=== PATIENT | male | born 1970 | race Caucasian/White ===

== ENCOUNTER 2024-06-23 17:18 | Emergency (ER) | payer MEDICAID, OTHER ==
[~2024-06-23] VITALS: Ht 170.2 cm; Wt 76.6 kg
[2024-06-23 17:37] VITALS: BP 122/83; PULSE 110; RESP 16; TEMP 98.3; O2SAT 94
[2024-06-23] MEDS ORDERED: FUROSEMIDE 100 MG/10ML VIAL IV ONE (17:45)
[2024-06-23] MEDS ORDERED: LACTULOSE 20Gm/30ML SOLN PO ONE (17:45)
[2024-06-23] MEDS ORDERED: SPIRONOLACTONE 25 MG TAB PO ONE (17:45)
--- NOTE | 2024-06-23 17:45 | ED.PDOC ---
GI ASSESSMENT HPI Comments 54 y.o male presents to the ED for a chief complaint of abdominal distention. Patient reports one week ago having a paracentesis at [facility] and states distention recurred a couple days ago again. Patient also presents for medication refill for Xifaxan 550mg, Furosemide 20mg, Spirolactone 50mg and Lactulose 20mg. Vitals: BP: 122/83 HR: 110 Temp: 98.3 F SPO2: 94% RA RR: 16 Past medical history: Liver Cirrhosis and ascites Past surgical history: Paracentesis Allergies: None HPI: Poor Historian. REVIEW OF SYSTEMS: CONSTITUTIONAL: Denies acute: fever, diaphoresis, chills, generalized weakness. HEAD: Denies acute: headache, photophobia Eyes: Denies acute: Double vision, vision loss, eye pain, eye discharge. EARS: Denies acute: tinnitus, hearing loss, ear discharge, ear pain, THROAT: Denies acute: sore throat, swelling, difficulty swallowing , pain with swallowing, change in voice. NECK: Denies acute: neck pain, neck swelling, stiff neck. HEART: Denies acute : chest pain, palpitations, LUNGS: Denies acute: SOB, wheezing, cough, hemoptysis ABDOMEN: Denies acute: abdominal pain, Nausea, Vomiting, diarrhea, melena , hematemesis, hematochezia SKIN: Denies acute: rash, redness, lesions, itchiness. EXTREMITIES: Denies acute: calf pain, numbness, tingling, weakness, denies pain in extremity. Denies acute: Low back pain. Neuro: Denies acute: focal neurological deficit, motor or sensory focal neurological deficit, tremors, seizure like activity, confusion, dizziness, change in mental status, loss of bowel or bladder function, cauda equina like symptoms. : Denies acute: dysuria, hematuria, flank pain, increase in urinary frequency. PSYCH: Denies acute: hallucination, suicidal ideation, homicidal ideation. PHYSICAL EXAM: General: ----no----acute distress, awake and alert. Head: normocephalic, atraumatic. Neck: supple, trachea is midline, no swelling. Throat: Normal phonation. Eyes:, no erythema, no purulent discharge, no proptosis, no icterus. Heart: regular tachycardic, no significant murmur appreciated. Lungs: no apparent respiratory distress, Able to speak in full sentences. No wheezing, no rhonchi, no crackles. No stridors Clear to auscultation bilaterally. Abdomen: non tender to palpation, noted distention, soft, no guarding, no rebound, + bowel sounds. Neuro: Awake, Alert, oriented to name, self, situation, follows commands GCS=15. Speech is normal. Skin: no petechia, no purpura, no cyanosis, non-pale, not jaundice. Lower extremities: --no - Pitting edema no deformity, no focal swelling, no calf TTP. Makes eye contact. moves all four extremities. Face: no apparent facial droop. Ambulating in the ED independently. ED COURSE: Chief Complaint: Abdominal Pain Time Seen by MD: 17:35 Primary Care Provider: denies Reviewed Notes: Nurses Notes, Allergies Allergies: Coded Allergies: NO KNOWN ALLERGIES (Unverified , 06/23/24) Information Source: Patient Mode of Arrival: Ambulatory Past Medical History PAST MEDICAL HISTORY: Liver Surgical History (Other): paracentesis Family History Family History: Reviewed,noncontributory to illness Social History Smoker: Non-Smoker Alcohol: Denies ETOH Use Drugs: Denies Drug Use Lives In: Home Was a procedure done? Was a procedure done?: No GI differential Dx Differential Diagnosis: Esophagitis, Hepatitis, Inflammatory BD, Pancreatitis, Other (DDX include but not limited to diverticulitis, colitis, gastroenteritis, acute abdomen, SBO, enteritis, constipation, volvulus, appendicitis, Gallbladder disease, choledocolithiasis, ascending cholangitis, pancreatitis, intraAbdominal mass/neoplasm, hepatitis, UTI, pylonephritis, kidney stone, aneurysm, dissection, Inflammatory bowel disease, gastroparesis, ischemic bowel.) X-Ray, Labs, Meds, VS Vital Signs Date Time Temp Pulse Resp B/P (MAP) Pulse Ox O2 Delivery O2 Flow Rate FiO2 06/23/24 17:37 98.3 110 16 122/83 (96) 94 98.3 Lab Test 06/23/24 18:01 06/23/24 17:56 Range/Units Lactic Acid Level 3.5 *H 0.4-2.0 mmol/L White Blood Count 19.3 H 4.4-10.8 10^3/uL Red Blood Count 3.48 L 4.5-5.90 10^6/uL Hemoglobin 12.0 L 13.5-17.5 g/dL Hematocrit 35.3 L 41.0-53.0 % Mean Corpuscular Volume 101.3 H 80.0-100.0 fL Mean Corpuscular Hemoglobin 34.4 H 28.0-32.0 pg Mean Corpuscular Hemoglobin Concent 34.0 32.0-36.0 g/dL Red Cell Distribution Width 14.4 H 11.8-14.3 % Platelet Count 309 140-450 10^3/uL Mean Platelet Volume 7.5 6.9-10.8 fL Neutrophils (%) (Auto) 73.2 37.0-80.0 % Lymphocytes (%) (Auto) 13.1 10.0-50.0 % Monocytes (%) (Auto) 11.0 0.0-12.0 % Eosinophils (%) (Auto) 2.1 0.0-7.0 % Basophils (%) (Auto) 0.6 0.0-2.0 % Neutrophils # (Auto) 14.1 H 1.6-8.6 10 ^3/uL Lymphocytes # (Auto) 2.5 0.4-5.4 10 ^3/uL Monocytes # (Auto) 2.1 H 0-1.3 10 ^3/uL Eosinophils # (Auto) 0.4 0-0.8 10 ^3/uL Basophils # (Auto) 0.1 0-0.2 10 ^3/uL Nucleated Red Blood Cells 0.1 % Prothrombin Time 14.5 H 9.3-11.8 sec Prothrombin Time INR 1.42 H 0.9-1.15 Activated Partial Thromboplast Time 35.0 H 24.5-34.5 SEC Sodium Level 129 L 136-145 mmol/L Potassium Level 4.3 3.5-5.1 mmol/L Chloride Level 99 98-107 mmol/L Carbon Dioxide Level 23 20-31 mmol/L Anion Gap 7 5-15 Blood Urea Nitrogen 21 9-23 mg/dL Creatinine 1.05 0.700-1.30 mg/dL Glomerular Filtration Rate Calc 84 >90 mL/min BUN/Creatinine Ratio 20.0 10.0-20.0 Serum Glucose 119 H 74-106 mg/dL Calcium Level 8.6 L 8.7-10.4 mg/dL Total Bilirubin 3.9 H 0.2-1.0 mg/dL Aspartate Amino Transferase (AST) 75 H 13-40 U/L Alanine Aminotransferase (ALT) 38 7-40 U/L Alkaline Phosphatase 239 H 46-116 U/L Troponin I High Sensitivity 10 </=54 ng/L B-Type Natriuretic Peptide 33.14 0-100 pg/mL Total Protein 8.0 5.7-8.2 g/dL Albumin 2.6 L 3.2-4.8 g/dL Lipase 48 12-53 U/L Microbiology Date/Time Source Procedure Growth Status 06/23/24 20:08 Blood Blood Culture - Preliminary NO GROWTH AFTER 24 HOURS OF INCUBATION. Resulted 06/23/24 19:50 Blood Blood Culture - Preliminary NO GROWTH AFTER 24 HOURS OF INCUBATION. Resulted [place] [address] Ph: [phone] DIAGNOSTIC IMAGING Diagnostic Imaging Report : [id number] Signed PATIENT: YUE QUARLES ACCT: [id number] UNIT: [id number] : 1970 LOC: ER ROOM / BED: / AGE / SEX: 54 / M ADM STATUS: REG ER SERVICE 173 ORDERING PHYSICIAN: RAMÓN BERMAN DO PROCEDURE(s): CXRP - CHEST PORTABLE REASON: abd dist. ascites ORDER NUMBER(s): [id number], ACCESSION NUMBER(s): [id number] CHEST RADIOGRAPH Indication: abd dist. ascites Technique: Single frontal view of the chest was obtained Comparison: Lung windows from prior CT examination of the abdomen pelvis of today's date FINDINGS: In prior CT examination patient had voluminous ascites and probable cirrhosis of the elevation of the right hemidiaphragm there appears to be fluid in the right major fissure in the which is visible in the right lung base in the current study. Small effusion in the posterior right lower lobe. IMPRESSION: 1. Probable minimal fluid reflux from large amount of ascites into the right lung base. ATED BY: GUZMAN SALAZAR MD DICTATED DATE/TIME: 06/23/241800 SIGNED BY: GUZMAN SALAZAR MD SIGNED DATE/TIME: 06/23/241800 CC: [place] [address] Ph: [phone] DIAGNOSTIC IMAGING Diagnostic Imaging Report : [id number] Signed PATIENT: YUE QUARLES ACCT: [id number] UNIT: [id number] : 1970 LOC: ER ROOM / BED: / AGE / SEX: 54 / M ADM STATUS: REG ER SERVICE 30 ORDERING PHYSICIAN: RAMÓN BERMAN DO PROCEDURE(s): ABPL - CT AB PEL WO CON-NO ORAL OR IV REASON: abd dist, ascites ORDER NUMBER(s): [id number], ACCESSION NUMBER(s): [id number] Procedure: CT CT AB PEL WO CON-NO ORAL OR IV 06/23/2024 05:38 PM Indication: abd dist, ascites Comparison Study: None Technique: Axial images were obtained and reformatted in coronal and sagittal planes. All CT scans at this medical facility are performed using dose modulation techniques as appropriate to a performed exam including the following: Automated exposure control was utilized; adjustment of the MA and/or KV according to patient size; and use of iterative reconstruction technique. CT Dose: CTDI volume is 13.37 mGy. Dose-length product is 765.89 mGy*cm FINDINGS: Lower Chest: Small right pleural effusion. Hepatobiliary: Cirrhotic liver morphology. Mild diffuse gallbladder wall thickening likely secondary to cirrhosis and ascites. No intrahepatic or extrahepatic ductal dilatation. Large abdominopelvic ascites. Spleen: Unremarkable. Pancreas: Unremarkable. Adrenal Glands: Unremarkable. tract: The kidneys are normal in size bilaterally without hydronephrosis or nephrolithiasis. The urinary bladder is unremarkable. GI tract: The stomach is grossly normal in appearance. No evidence of small bowel obstruction. Scattered colonic diverticula are noted without evidence of diverticulitis. The appendix is normal. Lymphatics: No mesenteric, retroperitoneal or periportal lymphadenopathy. Vasculature: The abdominal aorta is normal in in caliber. Pelvic Organs: Prostate is mildly enlarged. Bones/soft tissues: No acute abnormality. Multilevel degenerative changes of the lumbar spine noted. Other: None. IMPRESSION: 1. Cirrhosis and large abdominopelvic ascites. 2. Small right pleural effusion. 3. Scattered colonic diverticula without diverticulitis. ATED BY: SHILOH SHANE MD DICTATED DATE/TIME: 06/23/241818 SIGNED BY: SHILOH SHANE MD SIGNED DATE/TIME: 06/23/241818 CC: Time of 1ST Reevaluation: 17:41 Reevaluation 1ST: Unchanged Time of 2ND Reevaluation: 20:38 (Sepsis protocol was initiated earlier. We are unable to locate the patient. Patient eloped. I spoke with the charge nurse Kristen, to reach out to the patient and have him return given his abnormal findings.) Patient Education/Counseling: Diagnosis, Treatment Family Education/Counseling: No Family Present Comments Patient presented with the above HPI.------workup was initiated. patient was found with the above mentioned diagnosis. the following medications were ordered: please refer to order lists of meds and tests obtained by myself Dr. Berman. Patient ED course and VS have been stabilized. Patient has been reassessed in the ED and remained in a stable condition. Escalation of care considered: Consideration of escalation to observation or admission Sepsis protocol was initiated. Patient was ADMITTED to the medicine team for further evaluation and treatment of their presentation. However patient eloped. All the reports of any imaging studies that were ordered by myself were reviewed by myself. Departure 1 Departure Time of Disposition: 19:41 Impression: Primary Impression: Sepsis Additional Impressions: Ascites Pleural effusion Leukocytosis Elevated lactic acid level Disposition: ADMITTED INPATIENT Admit to: Tele Condition: Guarded Additional Instructions: Patient eloped Discharged With: Self Critical Care Note Critical Care Time?: Yes (45 min-critical care time only) I personally scribed for RAMÓN BERMAN DO ([email or web address]) on 06/23/24 at 17:45. Electronically submitted by Nimisha Kerr ([facility]). I personally scribed for RAMÓN BERMAN DO ([email or web address]) on 06/23/24 at 20:03. Electronically submitted by Nimisha Kerr ([facility]). RAMÓN BERMAN DO Jun 23, 2024 17:45
--- NOTE | 2024-06-23 18:03 | DVH ---
CHEST RADIOGRAPH Indication: abd dist. ascites Technique: Single frontal view of the chest was obtained Comparison: Lung windows from prior CT examination of the abdomen pelvis of today's date FINDINGS: In prior CT examination patient had voluminous ascites and probable cirrhosis of the elevation of the right hemidiaphragm there appears to be fluid in the right major fissure in the which is visible in the right lung base in the current study. Small effusion in the posterior right lower lobe. IMPRESSION: 1. Probable minimal fluid reflux from large amount of ascites into the right lung base.
--- NOTE | 2024-06-23 18:22 | DVH ---
Procedure: CT CT AB PEL WO CON-NO ORAL OR IV 06/23/2024 05:38 PM Indication: abd dist, ascites Comparison Study: None Technique: Axial images were obtained and reformatted in coronal and sagittal planes. All CT scans at this medical facility are performed using dose modulation techniques as appropriate to a performed e xam including the following: Automated exposure control was utilized; adjustment of the MA and/or KV according to patient size; and use of iterative reconstruction technique. CT Dose: CTDI volume is 13. 37 mGy. Dose-length product is 765.89 mGy*cm FINDINGS: Lower Chest: Small right pleural effusion. Hepatobiliary: Cirrhotic liver morphology. Mild diffuse gallbladder wall thickening likely secondary to cirrhosis and ascites. No intrahepatic or extrahepatic ductal dilatation. Large abdominopelvic a scites. Spleen: Unremarkable. Pancreas: Unremarkable. Adrenal Glands: Unremarkable. tract: The kidneys are normal in size bilaterally without hydronephrosis or nephrolithiasis. The u rinary bladder is unremarkable. GI tract: The stomach is grossly normal in appearance. No evidence of small bowel obstruction. Scatte red colonic diverticula are noted without evidence of diverticulitis. The appendix is normal. Lymphatics: No mesenteric, retroperitoneal or periportal lymphadenopathy. Vasculature: The abdominal aorta is normal in in caliber. Pelvic Organs: Prostate is mildly enlarged. Bones/soft tissues: No acute abnormality. Multilevel degenerative changes of the lumbar spine noted. Other: None. IMPRESSION: 1. Cirrhosis and large abdominopelvic ascites. 2. Small right pleural effusion. 3. Scattered colonic diverticula without diverticulitis.
[2024-06-23 19:02] LABS: Basophils # (auto) 0.1 10 ^3/uL (0-0.2); Eosinophils # (auto) 0.4 10 ^3/uL (0-0.8); Platelet Count (auto) 309 10^3/uL (140-450)
[2024-06-23 19:05] LABS: Basophils % (auto) 0.6 % (0.0-2.0); Eosinophils % (auto) 2.1 % (0.0-7.0); Hematocrit 35.3 % (41.0-53.0); Lymphocytes # (auto) 2.5 10 ^3/uL (0.4-5.4); Lymphocytes % (auto) 13.1 % (10.0-50.0); Mean Corpuscular Hemoglobin 34.4 pg (28.0-32.0); Mean Corpuscular Volume 101.3 fL (80.0-100.0); Monocytes # (auto) 2.1 10 ^3/uL (0-1.3); Neutrophils # (auto) 14.1 10 ^3/uL (1.6-8.6); Neutrophils % (auto) 73.2 % (37.0-80.0); Nucleated Red Blood Cells % 0.1 %; Red Blood Cells 3.48 10^6/uL (4.5-5.90); Red Cell Distribution Width 14.4 % (11.8-14.3); White Blood Cell 19.3 10^3/uL (4.4-10.8)
[2024-06-23 19:08] LABS: Alanine Aminotransferase 38 U/L (7-40); Anion Gap 7 (5-15); Blood Urea Nitrogen 21 mg/dL (9-23); Carbon Dioxide 23 mmol/L (20-31); Chloride 99 mmol/L (98-107); Lipase 48 U/L (12-53); Potassium 4.3 mmol/L (3.5-5.1)
[2024-06-23 19:18] LABS: INR 1.42 (0.9-1.15); Prothrombin Time 14.5 sec (9.3-11.8)
[2024-06-23 19:23] LABS: Albumin 2.6 g/dL (3.2-4.8); Alkaline Phosphatase 239 U/L (46-116); Aspartate Aminotransferase 75 U/L (13-40); Bilirubin, Total 3.9 mg/dL (0.2-1.0); Calcium 8.6 mg/dL (8.7-10.4); Glucose 119 mg/dL (74-106); Sodium 129 mmol/L (136-145)
[2024-06-23 19:24] LABS: Lactic Acid w/Reflex 3.5 mmol/L (0.4-2.0)
[2024-06-23] MEDS ORDERED: cefTRIAXone 2GM/50ML D5W 50 ML IV ONE (19:45)
== END 2024-06-23 20:19 | disposition left against medical advice (07) ==
LOC: ER 17:18
DX: A41.9 Sepsis, unspecified organism (principal); E87.20 Acidosis, unspecified; J84.10 Pulmonary fibrosis, unspecified; J90 Pleural effusion, not elsewhere classified; R18.8 Other ascites; R06.02 Shortness of breath; Z76.0 Encounter for issue of repeat prescription
CPT/HCPCS: 36415; 71045; 74176; 80053; 83605; 83690; 83880; 84484; 85025; 85610; 85730; 87040; 99291

== ENCOUNTER 2024-06-24 07:37 | Emergency (ER) | payer MEDICAID ==
[~2024-06-24] VITALS: Ht 165.1 cm; Wt 78.6 kg
--- NOTE | 2024-06-24 08:11 | ED.PDOC ---
GI ASSESSMENT HPI Comments 54 year old male presents to the ED with a chief complaint of abdominal pain onset 2 days. Patient states he has been experiencing abdominal pain with distension for the past 2 days, was seen at [facility] 06/23/24, decided to leave prior to paracentesis. Patient returned to ED today for paracentesis. Last paracentesis was at [facility] 6 days ago, states he regularly has them done at [facility], does not have a PCP, states he is moving to [place] in a couple weeks. PMHx liver disease. Denies chest pain, nausea, vomiting, diarrhea, fever, chills, dizziness, headache. No other symptoms or modifying factors present at this time. Chief Complaint: Abdominal Pain Time Seen by MD: 08:00 Primary Care Provider: none Reviewed Notes: Medications, Allergies Allergies: Coded Allergies: NO KNOWN ALLERGIES (Unverified , 06/23/24) Information Source: Patient Mode of Arrival: Ambulatory Timing: Days Duration: Since onset Prehospital treatment: None Quality: Other Vomitus: None Severity: Moderate Recent: None Recent Hx of: Liver Disease Pain Location: Diffuse Modifying Factors: Nothing Associated sign and symptoms: Abdominal Pain Past Medical History PAST MEDICAL HISTORY: Liver Family History Family History: Reviewed,noncontributory to illness Social History Smoker: Non-Smoker Alcohol: Denies ETOH Use Drugs: Denies Drug Use Lives In: Home Constitutional: denies: chills, diaphoresis, fatigue, fever, malaise, sweats, weakness, others EENTM: denies: blurred vision, double vision, ear bleeding, ear discharge, ear drainage, ear pain, ear ringing, eye pain, eye redness, hearing loss, mouth pain, mouth swelling, nasal discharge, nose bleeding, nose congestion, nose pain, photophobia, tearing, throat pain, throat swelling, voice changes, others Respiratory: denies: cough, hemoptysis, orthopnea, SOB at rest, shortness of breath, SOB with excertion, stridor, wheezing, others Cardiovascular: denies: chest pain, dizzy spells, diaphoresis, Dyspnea on exertion, edema, irregular heart beat, left arm pain, lightheadedness, palpitations, PND, syncope, others Gastrointestinal: reports: abdomen distended, abdominal pain; denies: blood streaked bowels, constipated, diarrhea, dysphagia, difficulty swallowing, hematemesis, melena, nausea, poor appetite, poor fluid intake, rectal bleeding, rectal pain, vomiting, others Genitourinary: denies: burning, dysuria, flank pain, frequency, hematuria, incontinence, penile discharge, penile sore, pain, testicle pain, testicle swelling, urgency, others Neurological: denies: dizziness, fainting, headache, left sided numbness, left sided weakness, numbness, paresthesia, pre-existing deficit, right sided numbness, right sided weakness, seizure, speech problems, tingling, tremors, weakness, others Musculoskeletal: denies: back pain, gout, joint pain, joint swelling, muscle pain, muscle stiffness, neck pain, others Integumetry: denies: bruises, change in color, change in hair/nails, dryness, laceration, lesions, lumps, rash, wounds, others Allergic/Immunocompromised: denies: Difficulty Healing, Frequent Infections, Hives, Itching, others Hematologic/Lymphatic: denies: anemia, blood clots, easy bleeding, easy bruising, swollen glands, others Endocrine: denies: excessive hunger, excessive sweating, excessive thirst, excessive urination, flushing, intolerance to cold, intolerance to heat, unexplained weight gain, unexplained weight loss, others Psychiatric: denies: anxiety, bipolar disorder, depression, hopeless, panic disorder, schizophrenia, sleepless, suicidal, others All Other Systems: Reviewed and Negative Physical Exam General Appearance: Moderate Distress, Normal HEENT: Normal ENT Inspection, Pharynx Normal, TMs Normal Neck: Full Range of Motion, Non-Tender, Normal, Normal Inspection Respiratory: Chest Non-Tender, Lungs Clear, No Accessory Muscle Use, No Respiratory Distress, Normal Breath Sounds Cardiovascular: No Edema, No JVD, No Murmur, No Gallop, Normal Peripheral Pulses, Regular Rate/Rhythm Breast Exam: Deferred Gastrointestinal: Distended, No Organomegaly, Other (protuberant abdomen) Genitalia: Deferred Pelvic: Deferred Rectal: Deferred Extremities: No calf tenderness, Normal capillary refill, Normal inspection, Normal range of motion, Non-tender, No pedal edema Musculoskeletal : Apperance: Normal Neurologic: Alert, metal cutter II-XII 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 Was a procedure done?: No GI differential Dx Differential Diagnosis: Cholecystitis, Dysmenorrhea, Gastritis/PUD, Gastroenteritis, GI hemorrhage, Inflammatory BD, Pancreatitis, Dehydration, Diabetes/ DKA, Electrolyte Imbalance, Food Poisoning, Esophageal Varicies X-Ray, Labs, Meds, VS Vital Signs Date Time Temp Pulse Resp B/P (MAP) Pulse Ox O2 Delivery O2 Flow Rate FiO2 06/24/24 11:44 97.5 75 17 98/46 (63) 97 97.5 06/24/24 08:40 97.5 121 18 112/76 (88) 96 97.5 06/24/24 08:40 121 18 96 Room Air 06/24/24 07:52 98.1 116 17 107/71 (83) 97 98.1 Lab Test 06/24/24 10:25 06/24/24 08:13 06/24/24 07:46 Range/Units Lactic Acid Level 2.7 *H 3.7 *H 0.4-2.0 mmol/L White Blood Count 19.3 H 4.4-10.8 10^3/uL Red Blood Count 3.35 L 4.5-5.90 10^6/uL Hemoglobin 11.5 L 13.5-17.5 g/dL Hematocrit 34.2 L 41.0-53.0 % Mean Corpuscular Volume 101.9 H 80.0-100.0 fL Mean Corpuscular Hemoglobin 34.4 H 28.0-32.0 pg Mean Corpuscular Hemoglobin Concent 33.7 32.0-36.0 g/dL Red Cell Distribution Width 14.6 H 11.8-14.3 % Platelet Count 308 140-450 10^3/uL Mean Platelet Volume 7.2 6.9-10.8 fL Neutrophils (%) (Auto) 73.0 37.0-80.0 % Lymphocytes (%) (Auto) 13.9 10.0-50.0 % Monocytes (%) (Auto) 10.6 0.0-12.0 % Eosinophils (%) (Auto) 1.8 0.0-7.0 % Basophils (%) (Auto) 0.7 0.0-2.0 % Neutrophils # (Auto) 14.1 H 1.6-8.6 10 ^3/uL Lymphocytes # (Auto) 2.7 0.4-5.4 10 ^3/uL Monocytes # (Auto) 2.0 H 0-1.3 10 ^3/uL Eosinophils # (Auto) 0.3 0-0.8 10 ^3/uL Basophils # (Auto) 0.1 0-0.2 10 ^3/uL Nucleated Red Blood Cells 0.3 % Sodium Level 127 L 136-145 mmol/L Potassium Level 4.4 3.5-5.1 mmol/L Chloride Level 97 L 98-107 mmol/L Carbon Dioxide Level 22 20-31 mmol/L Anion Gap 8 5-15 Blood Urea Nitrogen 22 9-23 mg/dL Creatinine 1.44 H 0.700-1.30 mg/dL Glomerular Filtration Rate Calc 57 >90 mL/min BUN/Creatinine Ratio 15.3 10.0-20.0 Serum Glucose 115 H 74-106 mg/dL Calcium Level 8.7 8.7-10.4 mg/dL Total Bilirubin 5.4 H 0.2-1.0 mg/dL Aspartate Amino Transferase (AST) 69 H 13-40 U/L Alanine Aminotransferase (ALT) 40 7-40 U/L Alkaline Phosphatase 219 H 46-116 U/L Total Protein 7.7 5.7-8.2 g/dL Albumin 2.4 L 3.2-4.8 g/dL Lipase 37 12-53 U/L Urine Color Dark-orange Yellow Urine Clarity Turbid H Clear Urine pH 5.5 5.0-9.0 Urine Specific Page 1.023 1.001-1.035 Urine Protein 1+ H Negative Urine Ketones Negative Negative Urine Blood Negative Negative /uL Urine Nitrite Negative Negative Urine Bilirubin 1+ Negative Urine Urobilinogen 3 H Negative mg/dL Urine Leukocyte Esterase 1+ Negative /uL Urine RBC 1 0 - 3 /hpf Urine Microscopic WBC 1 0-3 /HPF Urine Squamous Epithelial Cells Few <5 /hpf Urine Calcium Oxalate Crystals Few None Seen Urine Bacteria None seen None Seen /hpf Urine Hyaline Casts Many 0 - 2 /lpf Urine Granular Casts Many 0 /lpf Urine Mucus Few None Seen Urine Yeast (Budding) Occasional None Seen /hpf Urine Glucose Normal Normal mg/dL Current Medications Medications (Trade) Dose Ordered Sig/Mykel Route Start Time Stop Time Status Last Admin Vancomycin HCl 200 ml @ 200 mls/hr ONCE ONCE IV 06/24/24 11:15 4/1/25 12:14 DC 06/24/24 11:43 Time of 1ST Reevaluation: 08:30 Reevaluation 1ST: Unchanged Patient Education/Counseling: Diagnosis, Treatment, Prognosis Family Education/Counseling: No Family Present Additional Information The following tests were ordered, and results were reviewed by me: CBC, CMP, LIPASE, LA W/ REFLEX, US PARACENTESIS I reviewed and agreed with the following test results read by other providers:US PARACENTESIS I discussed treatment and results with medical personnel and: Patient Comprehensive systems review obtained and negative except for what is stated in the HPI. Departure 1 Departure Time of Disposition: 12:40 (Patient presented with abdominal pain that was concerning for possible appendicits, gastritis, cholecystitis, colitis, gastroenteritis, sbo, or orther possible surgical emergency. Data: 1. I ordered and reviewed the result of at least 3 labs including a CBC, BMP, and Urinalysis. 2. I independently interpreted the following tests: CT Abdoment and Pelvis from yesterday is concerning for ascites.Risk:This patient has a high risk of morbidity due to further diagnostic testing or treatment and may suffer from an acute abdominal process disorder. Workup reveals concern for SBP and worsening volume overload and patient should be admitted for further workup. and possible expert consultation. Patient may have concern for sepsis but appears volume overloaded and will not give patient antibiotics. ) Impression: Primary Impression: Ascites Qualified Codes: R18.8 - Other ascites Additional Impressions: Abdominal pain Qualified Codes: R10.84 - Generalized abdominal pain Volume overload Qualified Codes: E87.70 - Fluid overload, unspecified Disposition: ADMITTED INPATIENT Admit to: Med Surg Condition: Serious Critical Care Note Critical Care Time?: No Stability Stability form required: No I personally scribed for FREDO STAPLETON MD ([email or web address]) on 06/24/24 at 08:11. Electronically submitted by Marya Sousa ([email or web address]). I personally scribed for FREDO STAPELTON MD ([email or web address]) on 06/24/24 at 08:18. Electronically submitted by Marya Sousa ([email or web address]). FREDO STAPLETON MD Jun 24, 2024 08:11
[2024-06-24 08:33] LABS: Basophils # (auto) 0.1 10 ^3/uL (0-0.2); Basophils % (auto) 0.7 % (0.0-2.0); Eosinophils # (auto) 0.3 10 ^3/uL (0-0.8); Eosinophils % (auto) 1.8 % (0.0-7.0); Hematocrit 34.2 % (41.0-53.0); Hemoglobin 11.5 g/dL (13.5-17.5); Lymphocytes # (auto) 2.7 10 ^3/uL (0.4-5.4); Lymphocytes % (auto) 13.9 % (10.0-50.0); Mean Corpuscular Hemoglobin 34.4 pg (28.0-32.0); Mean Corpuscular Hgb Conc. 33.7 g/dL (32.0-36.0); Mean Corpuscular Volume 101.9 fL (80.0-100.0); Monocytes % (auto) 10.6 % (0.0-12.0); Neutrophils # (auto) 14.1 10 ^3/uL (1.6-8.6); Nucleated Red Blood Cells % 0.3 %; Platelet Count (auto) 308 10^3/uL (140-450); Red Blood Cells 3.35 10^6/uL (4.5-5.90); Red Cell Distribution Width 14.6 % (11.8-14.3); White Blood Cell 19.3 10^3/uL (4.4-10.8)
[2024-06-24 08:50] LABS: Alanine Aminotransferase 40 U/L (7-40); BUN/Creatinine Ratio 15.3 (10.0-20.0); Blood Urea Nitrogen 22 mg/dL (9-23); Calcium 8.7 mg/dL (8.7-10.4); Carbon Dioxide 22 mmol/L (20-31); Potassium 4.4 mmol/L (3.5-5.1); Total Protein 7.7 g/dL (5.7-8.2)
[2024-06-24 09:00] LABS: Albumin 2.4 g/dL (3.2-4.8); Alkaline Phosphatase 219 U/L (46-116); Aspartate Aminotransferase 69 U/L (13-40); Bilirubin, Total 5.4 mg/dL (0.2-1.0); Glucose 115 mg/dL (74-106); Sodium 127 mmol/L (136-145)
[2024-06-24 09:06] LABS: Urine Bacteria None Seen /hpf (None Seen)
[2024-06-24 09:15] LABS: Anion Gap 8 (5-15)
[2024-06-24 09:20] LABS: Lactic Acid w/Reflex 3.7 mmol/L (0.4-2.0)
[2024-06-24 09:21] LABS: Lipase 37 U/L (12-53)
[2024-06-24 09:22] LABS: Chloride 97 mmol/L (98-107)
[2024-06-24 09:23] LABS: Urine Blood Negative /uL (Negative); Urine Budding Yeast OCCASIONAL /hpf (None Seen); Urine Clarity Turbid (Clear); Urine Color Dark-Orange (Yellow); Urine Hyaline Cast MANY /lpf (0 - 2); Urine Mucus FEW (None Seen); Urine Protein, UAD 1+ (Negative); Urine Specific Gravity 1.023 (1.001-1.035); Urine Squamous Epithelial Cell FEW /hpf (<5); Urine Urobilinogen 3 mg/dL (Negative); Urine WBC 1 /HPF (0-3); Urine pH 5.5 (5.0-9.0)
[2024-06-24] MEDS: VANCOMYCIN 1GM/200ML PM 200 ML IV ONE (11:43)
[2024-06-24 11:44] VITALS: TEMP 97.5
[2024-06-24] MEDS: CEFEPIME 2GM/50ML NS 50 ML IV ONE (14:10)
[2024-06-24 15:10] VITALS: BP 116/68; PULSE 108; RESP 18; O2SAT 96
[2024-06-25] MEDS ORDERED: SODC1T PO (14:21)
[2024-06-25] MEDS ORDERED: SPIR50TA5 PO (14:21)
[2024-06-25] MEDS ORDERED: RIFA550T PO (14:21)
[2024-06-25] MEDS ORDERED: LACT10SO3 PO (14:21)
[2024-06-25] MEDS ORDERED: APIX5TAB PO (14:21)
[2024-06-25] MEDS ORDERED: [UNRECOGNIZED DRUG - CODE] OR (14:21)
[2024-06-25] MEDS ORDERED: ASCO500C49 PO (14:21)
[2024-06-25] MEDS ORDERED: THIA100T10 GT (14:21)
[2024-06-25] MEDS ORDERED: FURO20TA4 GT (14:21)
== END 2024-06-24 15:09 | disposition left against medical advice (07) ==
LOC: ER 07:37
DX: R18.8 Other ascites (principal); E87.70 Fluid overload, unspecified
CPT/HCPCS: 36415; 80053; 81001; 83605; 83690; 85025; 87040; 96365; 96367; 99284; J0692; J3370

== ENCOUNTER 2024-06-25 07:41 | Inpatient (IN) | payer MEDICAID ==
[~2024-06-25] VITALS: Ht 170.2 cm; Wt 78.8 kg
--- NOTE | 2024-06-25 08:06 | ED.PDOC ---
GI ASSESSMENT HPI Comments 54Y M presents to ED for chief complaint abdominal pain x3 days. Patient states he has been experiencing abdominal pain with distension for the past 3 days, was seen at [facility] 06/23/24 and 06/24/24, decided to leave prior to paracentesis. Patient returned to ED today for paracentesis. Last paracentesis was at [facility] last week, states he regularly has them done at [facility], does not have a PCP, states he is moving to [place] in a couple weeks. PMHx liver disease. Denies chest pain, nausea, vomiting, diarrhea, fever, chills, dizziness, headache. No other symptoms or modifying factors present at this time. Chief Complaint: Abdominal Pain Time Seen by MD: 07:55 Primary Care Provider: none Reviewed Notes: Nurses Notes, Medications, Allergies Allergies: Coded Allergies: NO KNOWN ALLERGIES (Unverified , 06/23/24) Information Source: Patient Mode of Arrival: Ambulatory Timing: Days Duration: Since onset Prehospital treatment: None Quality: Other Vomitus: None Stool: Normal Severity: Moderate Recent: None Recent Hx of: None Modifying Factors: Nothing Associated sign and symptoms: Other Past Medical History PAST MEDICAL HISTORY: Liver Surgical History: Denies all surgeries Family History Family History: Reviewed,noncontributory to illness Social History Smoker: Non-Smoker Alcohol: Denies ETOH Use Drugs: Denies Drug Use Lives In: Home Constitutional: denies: chills, diaphoresis, fatigue, fever, malaise, sweats, weakness, others EENTM: denies: blurred vision, double vision, ear bleeding, ear discharge, ear drainage, ear pain, ear ringing, eye pain, eye redness, hearing loss, mouth pain, mouth swelling, nasal discharge, nose bleeding, nose congestion, nose pain, photophobia, tearing, throat pain, throat swelling, voice changes, others Respiratory: denies: cough, hemoptysis, orthopnea, SOB at rest, shortness of breath, SOB with excertion, stridor, wheezing, others Cardiovascular: denies: chest pain, dizzy spells, diaphoresis, Dyspnea on exertion, edema, irregular heart beat, left arm pain, lightheadedness, palpitations, PND, syncope, others Gastrointestinal: reports: abdomen distended, abdominal pain; denies: blood streaked bowels, constipated, diarrhea, dysphagia, difficulty swallowing, hematemesis, melena, nausea, poor appetite, poor fluid intake, rectal bleeding, rectal pain, vomiting, others Genitourinary: denies: burning, dysuria, flank pain, frequency, hematuria, incontinence, penile discharge, penile sore, pain, testicle pain, testicle swelling, urgency, others Neurological: denies: dizziness, fainting, headache, left sided numbness, left sided weakness, numbness, paresthesia, pre-existing deficit, right sided numbness, right sided weakness, seizure, speech problems, tingling, tremors, weakness, others Musculoskeletal: denies: back pain, gout, joint pain, joint swelling, muscle pain, muscle stiffness, neck pain, others Integumetry: denies: bruises, change in color, change in hair/nails, dryness, laceration, lesions, lumps, rash, wounds, others Allergic/Immunocompromised: denies: Difficulty Healing, Frequent Infections, Hives, Itching, others Hematologic/Lymphatic: denies: anemia, blood clots, easy bleeding, easy bruising, swollen glands, others Endocrine: denies: excessive hunger, excessive sweating, excessive thirst, excessive urination, flushing, intolerance to cold, intolerance to heat, unexplained weight gain, unexplained weight loss, others Psychiatric: denies: anxiety, bipolar disorder, depression, hopeless, panic disorder, schizophrenia, sleepless, suicidal, others All Other Systems: Reviewed and Negative Physical Exam General Appearance: Moderate Distress, Normal HEENT: Normal ENT Inspection, Pharynx Normal, TMs Normal Neck: Full Range of Motion, Non-Tender, Normal, Normal Inspection Respiratory: Chest Non-Tender, Lungs Clear, No Accessory Muscle Use, No Respiratory Distress, Normal Breath Sounds Cardiovascular: No Edema, No JVD, No Murmur, No Gallop, Normal Peripheral Pulses, Regular Rate/Rhythm Breast Exam: Deferred Gastrointestinal: Distended, Non Tender Genitalia: Deferred Pelvic: Deferred Rectal: Deferred Extremities: No calf tenderness, Normal capillary refill, Normal inspection, Normal range of motion, Non-tender, No pedal edema Musculoskeletal : Apperance: Normal Neurologic: Alert, cold meat cook II-XII nml as Tested, No Motor Deficits, Normal Affect, Normal Mood, No Sensory Deficits Cerebellar Function: NOT DONE Reflexes: NOT DONE Skin: Dry, Normal Color, Warm Lymphatic: No Adenopathy Was a procedure done? Was a procedure done?: No GI differential Dx Differential Diagnosis: Cholecystitis, Gastritis/PUD, Gastroenteritis, GI hemorrhage, Inflammatory BD, Pancreatitis, Dehydration, Diabetes/ DKA, Electrolyte Imbalance, Food Poisoning, Esophageal Varicies X-Ray, Labs, Meds, VS Vital Signs Date Time Temp Pulse Resp B/P (MAP) Pulse Ox O2 Delivery O2 Flow Rate FiO2 06/25/24 10:30 104 12 95/50 (65) 97 06/25/24 10:00 103 19 102/64 (77) 97 06/25/24 09:00 107 18 94/62 (73) 96 06/25/24 08:15 111 20 99 Room Air* 0 21 06/25/24 08:15 97.7 111 20 104/72 (83) 99 97.7 06/25/24 07:59 113 06/25/24 07:50 97.9 121 18 120/61 (80) 98 97.9 Lab Test 06/25/24 09:23 06/25/24 08:30 Range/Units White Blood Count 16.0 H 4.4-10.8 10^3/uL Red Blood Count 3.15 L 4.5-5.90 10^6/uL Hemoglobin 11.0 L 13.5-17.5 g/dL Hematocrit 31.9 L 41.0-53.0 % Mean Corpuscular Volume 101.4 H 80.0-100.0 fL Mean Corpuscular Hemoglobin 34.9 H 28.0-32.0 pg Mean Corpuscular Hemoglobin Concent 34.4 32.0-36.0 g/dL Red Cell Distribution Width 14.7 H 11.8-14.3 % Platelet Count 218 140-450 10^3/uL Mean Platelet Volume 6.8 L 6.9-10.8 fL Neutrophils (%) (Auto) 82.5 H 37.0-80.0 % Lymphocytes (%) (Auto) 3.8 L 10.0-50.0 % Monocytes (%) (Auto) 11.7 0.0-12.0 % Eosinophils (%) (Auto) 1.2 0.0-7.0 % Basophils (%) (Auto) 0.8 0.0-2.0 % Neutrophils # (Auto) 13.2 H 1.6-8.6 10 ^3/uL Lymphocytes # (Auto) 0.6 0.4-5.4 10 ^3/uL Monocytes # (Auto) 1.9 H 0-1.3 10 ^3/uL Eosinophils # (Auto) 0.2 0-0.8 10 ^3/uL Basophils # (Auto) 0.1 0-0.2 10 ^3/uL Nucleated Red Blood Cells 0.0 % Prothrombin Time 13.8 H 9.3-11.8 sec Prothrombin Time INR 1.34 H 0.9-1.15 Activated Partial Thromboplast Time 33.3 24.5-34.5 SEC Sodium Level 125 L 136-145 mmol/L Potassium Level 4.9 3.5-5.1 mmol/L Chloride Level 96 L 98-107 mmol/L Carbon Dioxide Level 20 20-31 mmol/L Anion Gap 9 5-15 Blood Urea Nitrogen 25 H 9-23 mg/dL Creatinine 1.89 H 0.700-1.30 mg/dL Glomerular Filtration Rate Calc 41 >90 mL/min BUN/Creatinine Ratio 13.2 10.0-20.0 Serum Glucose 123 H 74-106 mg/dL Calcium Level 8.7 8.7-10.4 mg/dL Total Bilirubin 5.0 H 0.2-1.0 mg/dL Aspartate Amino Transferase (AST) 68 H 13-40 U/L Alanine Aminotransferase (ALT) 34 7-40 U/L Alkaline Phosphatase 220 H 46-116 U/L Total Protein 7.5 5.7-8.2 g/dL Albumin 2.4 L 3.2-4.8 g/dL Time of 1ST Reevaluation: 08:25 Reevaluation 1ST: Unchanged Patient Education/Counseling: Diagnosis, Treatment Family Education/Counseling: No Family Present Departure 1 Departure Time of Disposition: 11:22 (Patient ready presenting with worsening abdominal pain. Patient is signed out AMA yesterday because he had a something to deal with. Patient with metabolic disarray. Patient had 9 L drained from his abdomen. We will admit patient for further workup and expert consultation) Impression: Primary Impression: Abdominal pain Qualified Codes: R10.84 - Generalized abdominal pain Additional Impressions: Ascites Qualified Codes: R18.8 - Other ascites Hyponatremia Disposition: ADMITTED INPATIENT Admit to: Med Surg Condition: Serious Critical Care Note Critical Care Time?: No Stability Stability form required: No Heart Score Heart Score: Heart Score Response (Comments) Value History N/A 0 EKG N/A 0 Age N/A 0 Risk Factors N/A 0 Troponin N/A 0 Total 0 I personally scribed for FREDO STAPLETON MD ([facility]) on 06/25/24 at 08:06. Electronically submitted by June Pavon ([facility]). I personally scribed for FREDO STAPLETON MD ([facility]) on 06/25/24 at 08:13. Electronically submitted by June Pavon ([facility]). FREDO STAPLETON MD Jun 25, 2024 08:06
[2024-06-25 08:15] VITALS: PULSE 111; RESP 20; O2SAT 99
[2024-06-25 09:07] LABS: INR 1.34 (0.9-1.15); Partial Thromboplastin Time 33.3 SEC (24.5-34.5); Prothrombin Time 13.8 sec (9.3-11.8)
[2024-06-25 09:08] LABS: Alanine Aminotransferase 34 U/L (7-40); Anion Gap 9 (5-15); BUN/Creatinine Ratio 13.2 (10.0-20.0); Calcium 8.7 mg/dL (8.7-10.4); Potassium 4.9 mmol/L (3.5-5.1); Total Protein 7.5 g/dL (5.7-8.2)
[2024-06-25 09:09] LABS: Albumin 2.4 g/dL (3.2-4.8); Alkaline Phosphatase 220 U/L (46-116); Aspartate Aminotransferase 68 U/L (13-40); Blood Urea Nitrogen 25 mg/dL (9-23); Carbon Dioxide 20 mmol/L (20-31); Chloride 96 mmol/L (98-107); Glucose 123 mg/dL (74-106); Sodium 125 mmol/L (136-145)
[2024-06-25 09:35] LABS: Basophils # (auto) 0.1 10 ^3/uL (0-0.2); Basophils % (auto) 0.8 % (0.0-2.0); Eosinophils # (auto) 0.2 10 ^3/uL (0-0.8); Eosinophils % (auto) 1.2 % (0.0-7.0); Hematocrit 31.9 % (41.0-53.0); Lymphocytes # (auto) 0.6 10 ^3/uL (0.4-5.4); Lymphocytes % (auto) 3.8 % (10.0-50.0); Mean Corpuscular Hemoglobin 34.9 pg (28.0-32.0); Mean Corpuscular Hgb Conc. 34.4 g/dL (32.0-36.0); Mean Corpuscular Volume 101.4 fL (80.0-100.0); Monocytes # (auto) 1.9 10 ^3/uL (0-1.3); Monocytes % (auto) 11.7 % (0.0-12.0); Neutrophils # (auto) 13.2 10 ^3/uL (1.6-8.6); Neutrophils % (auto) 82.5 % (37.0-80.0); Platelet Count (auto) 218 10^3/uL (140-450); Red Blood Cells 3.15 10^6/uL (4.5-5.90); Red Cell Distribution Width 14.7 % (11.8-14.3)
--- NOTE | 2024-06-25 11:19 | DVH ---
US PARACENTESIS, HISTORY: ASCITES PROCEDURE: Informed consent was obtained. The patient was placed in supine position. A limited locali zation ultrasound of the abdomen was obtained, and the skin site over the largest pocket of fluid was marked and entry site was prepped with chlorhexidine which was allowed to dry and draped in the usua l sterile fashion. Time out was performed. Following administration of 1% lidocaine local anesthetic, a 5 Nauruan centesis needle catheter was percutaneously inserted into the peritoneal collection until fluid was aspirated. The catheter was advanced into the fluid collection and the needle removed. Abo ut 9000 cc of fluid was aspirated and specimen sent for appropriate cultures/cytology/cultures and cy tology. The catheter was then removed and a sterile dressing applied. No immediate complication was identified. FINDINGS: Limited ultrasound imaging demonstrates moderate ascites. Aspirated fluid was clear and ser ous. IMPRESSION: US-guided paracentesis with 9L removed.
[2024-06-25] MEDS: CEFEPIME 2GM/50ML NS 50 ML IV ONE (12:01)
[2024-06-25 13:04] LABS: Lactic Acid w/Reflex 4.4 mmol/L (0.4-2.0)
[2024-06-25 13:37] LABS: Urine Bacteria None Seen /hpf (None Seen)
[2024-06-25] MEDS: VANCOMYCIN 1GM/250ML KIT 250 ML IV ONE (13:41)
[2024-06-25 13:49] LABS: Urine Blood Negative /uL (Negative); Urine Clarity Turbid (Clear); Urine Color Orange (Yellow); Urine Hyaline Cast FEW /lpf (0 - 2); Urine Mucus FEW (None Seen); Urine Protein, UAD 1+ (Negative); Urine Specific Gravity 1.029 (1.001-1.035); Urine Squamous Epithelial Cell FEW /hpf (<5); Urine Urobilinogen 3 mg/dL (Negative); Urine WBC 10 /HPF (0-3); Urine pH 5.5 (5.0-9.0)
[2024-06-25] MEDS ORDERED: ACETAMINOPHEN 325 MG TAB PO PRN (14:00)
[2024-06-25] MEDS ORDERED: DOCUSATE SOD 100 MG CAP PO PRN (14:00)
[2024-06-25] MEDS ORDERED: MORPHINE SULFATE INJ 2 MG/ml SYRG IV PRN (14:00)
[2024-06-25] MEDS ORDERED: ONDANSETRON HCL 4 MG/2 ML VIAL IV PRN (14:00)
[2024-06-25] MEDS ORDERED: HYDROcodone-ACET 5/325MG TAB PO PRN (14:00)
[2024-06-25] MEDS ORDERED: NITROGLYCERIN 0.4 MG SL TAB SL PRN (14:00)
[2024-06-25 14:19] LABS: Body Fluid Red Blood Cells 0 CUMM (0-2000); Body Fluid White Blood Cells 114 CUMM (0-200)
[2024-06-25] MEDS ORDERED: ASCO500C49 PO (14:21)
[2024-06-25] MEDS ORDERED: THIA100T10 GT (14:21)
[2024-06-25] MEDS ORDERED: FURO20TA4 GT (14:21)
[2024-06-25] MEDS ORDERED: RIFA550T PO (14:21)
[2024-06-25] MEDS ORDERED: APIX5TAB PO (14:21)
[2024-06-25] MEDS ORDERED: SODC1T PO (14:21)
[2024-06-25] MEDS ORDERED: [UNRECOGNIZED DRUG - CODE] OR (14:21)
[2024-06-25] MEDS ORDERED: SPIR50TA5 PO (14:21)
[2024-06-25] MEDS ORDERED: LACT10SO3 PO (14:21)
--- NOTE | 2024-06-25 14:32 | DVHHP2 ---
History of Present Illness Reason for Visit: Abdominal pain History of Present Illness Ovidio Meng is a 54-year-old male with past medical history of DVT, and alcohol induced liver cirrhosis, who came in for abdominal pain. Patient has a history of requiring weekly paracentesis. His last paracentesis was . Patient was seen here the last 2 days but had to leave AMA to take care of his animals. He came back today able to stay and be admitted. Heme/Onc: Other (DVT) Hepatobiliary: Cirrhosis Past Surgical History: None Smoke: No ALCOHOL: none (quit March 2024) Drugs: None Lives: with Family Domestic Violence: Neg Review of Systems Constitutional: No: Fever, Chills, Sweats, Weakness, Malaise, Other Eyes: No: Pain, Vision change, Conjunctivae inflammation, Eyelid inflammation, Other, Redness ENT: No: Ear pain, Ear discharge, Nose pain, Nose discharge, Nose congestion, Mouth pain, Mouth swelling, Throat pain, Throat swelling, Other Respiratory: Shortness of breath, SOB with excertion; No: Cough, Dry, Wheezing, Hemoptysis, Pleuritic Pain, Sputum, Wheezing, Other Cardiovascular: No: Chest Pain, Palpitations, Orthopnea, Paroxysmal Noc. Dyspnea, Edema, Lt Headedness, Other Gastrointestinal: Abdominal Pain; No: Nausea, Vomiting, Diarrhea, Constipation, Melena, Hematochezia, Other Genitourinary: No Dysuria, No Frequency, No Incontinence, No Hematuria, No Retention, No Other Musculoskeletal: No: other, neck pain, shoulder pain, arm pain, back pain, hand pain, leg pain, foot pain Skin: No: Rash, Lesions, Jaundice, Bruising, Other Neurological: No: Weakness, Numbness, Incoordination, Change in speech, Confusion, Seizures, Other Allergies: Coded Allergies: NO KNOWN ALLERGIES (Unverified , 06/23/24) Medications Current Medications Medications Dose Ordered Sig/Mykel Route Start Time Stop Time Status Last Admin Dose Admin Acetaminophen/ Hydrocodone Bitart 1 tab Q4HP PRN PO 06/25/24 14:00 Ondansetron HCl 4 mg Q4HP PRN IV 06/25/24 14:00 Docusate Sodium 100 mg BIDPRN PRN PO 06/25/24 14:00 Acetaminophen 650 mg Q6HP PRN PO 06/25/24 14:00 Nitroglycerin 0.4 mg Q5MINP PRN SL 06/25/24 14:00 Morphine Sulfate 2 mg Q30M PRN IV 06/25/24 14:00 Exam Vital Signs Vital Signs Date Time Temp Pulse Resp B/P (MAP) Pulse Ox O2 Delivery O2 Flow Rate FiO2 06/25/24 12:00 97.7 106 13 100/41 (60) 97 97.7 06/25/24 08:15 Room Air* 0 21 General Appearance: Alert, Oriented X3, Cooperative, mild distress HEENT: Atraumatic, PERRLA Respiratory: Clear to auscultation, Normal air movement Cardiovascular: Normal S1, Normal S2, Other (tachycardia ) Abdominal: Normal bowel sounds, Other (S/P paracentesis - 9L off) Extremities: No clubbing, No cyanosis, Normal pulses, No tenderness/swelling, Other (Bilateral lower extremity edema) Skin: No rashes, No breakdown, No significant lesion Neuro: Normal gait, Normal speech, Strength at 5/5 X4 ext Psych/Mental Status: Mental status NL, Mood NL Labs/Xrays Labs Test 06/25/24 13:56 06/25/24 13:35 06/25/24 12:00 06/25/24 09:23 Range/Units Urine Color [place] H Yellow Urine Clarity Turbid H Clear Urine pH 5.5 5.0-9.0 Urine Specific [place] 1.029 1.001-1.035 Urine Protein 1+ H Negative Urine Ketones 1+ H Negative Urine Blood Negative Negative /uL Urine Nitrite Negative Negative Urine Bilirubin 1+ Negative Urine Urobilinogen 3 H Negative mg/dL Urine Leukocyte Esterase Negative Negative /uL Urine RBC 4 0 - 3 /hpf Urine Microscopic WBC 10 H 0-3 /HPF Urine Squamous Epithelial Cells Few <5 /hpf Urine Bacteria None seen None Seen /hpf Urine Hyaline Casts Few 0 - 2 /lpf Urine Mucus Few None Seen Urine Glucose Normal Normal mg/dL Body Fluid Source Peritoneal fluid Body Fluid pH 8.0 Body Fluid WBC (Manual) 114 0-200 CUMM Body Fluid RBC (Manual) 0 0-2000 CUMM Body Fluid Mononuclear Cells 60 % Body Fluid Polymorphonuclear Cells 40 H 0-25 % White Blood Count 16.0 H 4.4-10.8 10^3/uL Red Blood Count 3.15 L 4.5-5.90 10^6/uL Hemoglobin 11.0 L 13.5-17.5 g/dL Hematocrit 31.9 L 41.0-53.0 % Mean Corpuscular Volume 101.4 H 80.0-100.0 fL Mean Corpuscular Hemoglobin 34.9 H 28.0-32.0 pg Mean Corpuscular Hemoglobin Concent 34.4 32.0-36.0 g/dL Red Cell Distribution Width 14.7 H 11.8-14.3 % Platelet Count 218 140-450 10^3/uL Mean Platelet Volume 6.8 L 6.9-10.8 fL Neutrophils (%) (Auto) 82.5 H 37.0-80.0 % Lymphocytes (%) (Auto) 3.8 L 10.0-50.0 % Monocytes (%) (Auto) 11.7 0.0-12.0 % Eosinophils (%) (Auto) 1.2 0.0-7.0 % Basophils (%) (Auto) 0.8 0.0-2.0 % Neutrophils # (Auto) 13.2 H 1.6-8.6 10 ^3/uL Lymphocytes # (Auto) 0.6 0.4-5.4 10 ^3/uL Monocytes # (Auto) 1.9 H 0-1.3 10 ^3/uL Eosinophils # (Auto) 0.2 0-0.8 10 ^3/uL Basophils # (Auto) 0.1 0-0.2 10 ^3/uL Nucleated Red Blood Cells 0.0 % Test 06/25/24 08:30 Range/Units Prothrombin Time 13.8 H 9.3-11.8 sec Prothrombin Time INR 1.34 H 0.9-1.15 Activated Partial Thromboplast Time 33.3 24.5-34.5 SEC Sodium Level 125 L 136-145 mmol/L Potassium Level 4.9 3.5-5.1 mmol/L Chloride Level 96 L 98-107 mmol/L Carbon Dioxide Level 20 20-31 mmol/L Anion Gap 9 5-15 Blood Urea Nitrogen 25 H 9-23 mg/dL Creatinine 1.89 H 0.700-1.30 mg/dL Glomerular Filtration Rate Calc 41 >90 mL/min BUN/Creatinine Ratio 13.2 10.0-20.0 Serum Glucose 123 H 74-106 mg/dL Calcium Level 8.7 8.7-10.4 mg/dL Total Bilirubin 5.0 H 0.2-1.0 mg/dL Aspartate Amino Transferase (AST) 68 H 13-40 U/L Alanine Aminotransferase (ALT) 34 7-40 U/L Alkaline Phosphatase 220 H 46-116 U/L Total Protein 7.5 5.7-8.2 g/dL Albumin 2.4 L 3.2-4.8 g/dL US PARACENTESIS, HISTORY: ASCITES PROCEDURE: Informed consent was obtained. The patient was placed in supine position. A limited localization ultrasound of the abdomen was obtained, and the skin site over the largest pocket of fluid was marked and entry site was prepped with chlorhexidine which was allowed to dry and draped in the usual sterile fashion. Time out was performed. Following administration of 1% lidocaine local anesthetic, a 5 Belarusian centesis needle catheter was percutaneously inserted into the peritoneal collection until fluid was aspirated. The catheter was advanced into the fluid collection and the needle removed. About 9000 cc of fluid was aspirated and specimen sent for appropriate cultures/cytology/cultures and cytology. The catheter was then removed and a sterile dressing applied. No immediate complication was identified. FINDINGS: Limited ultrasound imaging demonstrates moderate ascites. Aspirated fluid was clear and serous. IMPRESSION: US-guided paracentesis with 9L removed. Assessment/Plan Assessment/Plan Assessment: Sepsis, Ascites, Leukocytosis, Lactic acidosis, Hyperbilirubinemia, Malnutrition, Hyponatremia, H/O DVT, Hypotension, Plan: Admit to [facility], Sepsis protocol, Blood culture, Urine culture, Paracentesis with 9L off, IV hydration, IV antibiotics, Ammonia levels, UA, urine cultures, Albumin, Plan discussed with: Patient My Orders Orders - MONICA CALVERT Procedure Category Date Status Time Admit ADMIT 06/25/24 Transmitted 14:00 Code Status CODE 06/25/24 Transmitted 14:00 Hydrocodone-Acet PHA 06/25/24 In Process 5/325mg Tab ([place] 14:00 Ondansetron Hcl PHA 06/25/24 In Process (Zofran) 14:00 Docusate Sodium PHA 06/25/24 In Process Capsule (Colace 14:00 Complete Blood Count LAB 06/26/24 Verified 04:00 Comprehensive LAB 06/26/24 Verified Metabolic Panel 04:00 Condition: Serious SRIKANTH 06/25/24 In Process 14:00 Acetaminophen Tablet PHA 06/25/24 In Process (Tylenol Tablet) 14:00 Nitroglycerin PHA 06/25/24 In Process Sublingual (Ntrostat 14:00 Morphine Sulfate PHA 06/25/24 In Process Injection 14:00 Stat Ekg For Chest SRIKANTH 06/25/24 In Process Pain 14:00 Notify Of Changes SRIKANTH 06/25/24 In Process From Base 14:00 Human Resources Office Manager For SRIKANTH 06/25/24 In Process 24 Hours 14:00 Emergency Dysrhythmia SRIKANTH 06/25/24 In Process Protocol 14:00 Rhythm Strips Once SRIKANTH 06/25/24 In Process Every Shift 14:00 Oxygen By Nasal RT 06/25/24 Transmitted Cannula 14:00 Urinalysis LAB 06/25/24 Logged 14:00 Ammonia LAB 06/25/24 Transmitted 14:04 Free Water Restriction SRIKANTH 06/25/24 Transmitted 14:04 Apixaban (Eliquis) PHA 06/25/24 Verified 22:00 Rifaximin (Xifaxan) PHA 06/25/24 Verified 22:00 Sodium Chloride Tab PHA 06/25/24 Verified 22:00 Thiamine Tab PHA 06/26/24 Verified 10:00 (Nf) Amino Acids PHA 06/26/24 Verified (Liquacel) 10:00 (Nf) Ascorbic Acid PHA 06/26/24 Verified (Vitamin C) 10:00 (Nf) Lactulose PHA 06/25/24 Verified 22:00 (Nf) Spironolactone PHA 06/26/24 Verified 10:00 Date of Service: Jun 25, 2024 Billing Provider: MONICA CALVERT Common Visit Codes: [id number] INP/OBS CARE (HIGH) MONICA CALVERT Jun 25, 2024 14:32
[2024-06-25] MEDS: SODIUM CHLORIDE 0.9% 2,000 ML IV ONE (14:56)
[2024-06-25] MEDS: ALBUMIN 5% 250 ML IV ONE (15:47)
[2024-06-25] MEDS ORDERED: VANCOMYCIN PER PHARMACY 0 MG IV SCH (16:45)
[2024-06-25 17:25] VITALS: BP 101/54; PULSE 106; RESP 18; RESP 19; TEMP 97.5; O2SAT 100
[2024-06-25] MEDS: cefTRIAXone 1GM/50ML D5W 50 ML IV SCH (18:07)
[2024-06-25 20:00] VITALS: PULSE 100; PULSE 108; RESP 17; O2SAT 97
[2024-06-25 21:00] VITALS: BP 95/48; PULSE 100; RESP 17; TEMP 97.9; O2SAT 97
[2024-06-25] MEDS: rifAXIMin 550 MG TAB PO SCH (21:59)
[2024-06-25] MEDS: LACTULOSE 20Gm/30ML SOLN PO SCH (22:00)
[2024-06-25] MEDS: APIXABAN 5 MG TAB PO SCH (22:00)
[2024-06-25] MEDS: SODIUM CHLORIDE 1 GM TAB PO SCH (22:00)
[2024-06-26] VITALS (8 sets, daily range): BP systolic 81–104; BP diastolic 39–81; PULSE 98–110; RESP 16–18; TEMP 97.5–98.1; O2SAT 92–98
[2024-06-26 06:49] LABS: Alanine Aminotransferase 26 U/L (7-40); Anion Gap 8 (5-15); BUN/Creatinine Ratio 19.1 (10.0-20.0); Chloride 100 mmol/L (98-107); Potassium 4.3 mmol/L (3.5-5.1)
[2024-06-26 06:50] LABS: Alkaline Phosphatase 183 U/L (46-116); Aspartate Aminotransferase 56 U/L (13-40); Blood Urea Nitrogen 26 mg/dL (9-23); Carbon Dioxide 19 mmol/L (20-31); Glucose 116 mg/dL (74-106); Sodium 127 mmol/L (136-145)
[2024-06-26 06:55] LABS: Basophils # (auto) 0.1 10 ^3/uL (0-0.2); Basophils % (auto) 0.8 % (0.0-2.0); Eosinophils # (auto) 0.4 10 ^3/uL (0-0.8); Eosinophils % (auto) 2.9 % (0.0-7.0); Hematocrit 29.4 % (41.0-53.0); Hemoglobin 9.9 g/dL (13.5-17.5); Lymphocytes # (auto) 0.9 10 ^3/uL (0.4-5.4); Lymphocytes % (auto) 6.7 % (10.0-50.0); Mean Corpuscular Hemoglobin 33.9 pg (28.0-32.0); Mean Corpuscular Hgb Conc. 33.6 g/dL (32.0-36.0); Monocytes # (auto) 1.6 10 ^3/uL (0-1.3); Monocytes % (auto) 12.5 % (0.0-12.0); Neutrophils % (auto) 77.1 % (37.0-80.0); Platelet Count (auto) 193 10^3/uL (140-450); Red Blood Cells 2.91 10^6/uL (4.5-5.90); Red Cell Distribution Width 14.4 % (11.8-14.3)
[2024-06-26] MEDS: ASCORBIC ACID 500 MG TAB PO SCH (08:50)
[2024-06-26] MEDS: SPIRONOLACTONE 25 MG TAB PO SCH (08:51)
[2024-06-26] MEDS: THIAMINE HCL 100 MG TAB GT SCH (08:51)
[2024-06-26] MEDS: AMINO ACIDS PO SCH (10:00)
[2024-06-26 10:38] LABS: Hepatitis B Core Total AB Negative (Negative)
[2024-06-26 10:58] LABS: Lactic Acid w/Reflex 2.4 mmol/L (0.4-2.0)
[2024-06-26] MEDS: ALBUMIN 25% 100 ML IV ONE (12:15)
[2024-06-26] MEDS: LACTULOSE 20Gm/30ML SOLN PO SCH (12:34)
[2024-06-26] MEDS: FUROSEMIDE 20 MG TAB PO ONE (12:38)
[2024-06-26] MEDS: VANCOMYCIN 500mg/100mL 100 ML IV ONE (12:39)
--- NOTE | 2024-06-26 12:43 | DVHPNRES ---
Progress Note Date Seen: Jun 26, 2024 Resident Creating Document: STELLA HEATON RESIDENT Medical Necessity Reason Pt with a Central, PICC or Fol: No Subjective Review of Systems This is year old male with past medical history of DVT, alcoholic liver cirrhosis came to the ED with a chief complaint of abdominal distention for last 3 days prior to this admission. the patient was diagnosed with cirrhosis 1 and half years ago and requiring weekly paracentesis and his last paracentesis was 06/19/24. Patient underwent paracentesis by IR yesterday and 9L removed and postoperative vitals were stable. Patient was seen and examined on the bedside. He is alert oriented x3. complaining of mild abdominal pain and no other active complaint. Constitutional: No: Fever, Chills, Sweats, Weakness, Malaise, Other Eyes: No: Pain, Vision change, Conjunctivae inflammation, Eyelid inflammation, Other, Redness ENT: No: Ear pain, Ear discharge, Nose pain, Nose discharge, Nose congestion, Mouth pain, Mouth swelling, Throat pain, Throat swelling, Other Respiratory: Shortness of breath, improving No: Cough, Dry,Wheezing, Hemoptysis, Pleuritic Pain, Sputum, Wheezing, Other Cardiovascular: No: Chest Pain, Palpitations, Orthopnea, Paroxysmal Noc. Dyspnea, Edema, Lt Headedness, Other Gastrointestinal: Abdominal Pain, No Nausea, Vomiting, Diarrhea, Constipation, Melena, Hematochezia, Other Musculoskeletal: No: other, neck pain, shoulder pain, arm pain, back pain, hand pain, leg pain, foot pain Neurological:; No: Weakness, Numbness, Incoordination, Change in speech, Confusion, Seizures Objective vital signs Vital Sign Date Time Temp Pulse Resp B/P (MAP) Pulse Ox O2 Delivery O2 Flow Rate FiO2 06/26/24 12:38 108/64 06/26/24 09:13 97.8 107 16 97 97.8 06/26/24 08:00 Room Air* 0 21 Total Intake and Output 06/25/24 06/25/24 06/26/24 15:00 23:00 07:00 Intake Total 300.0 ml 1300 ml 800 ml Balance 300.0 ml 1300 ml 800 ml medications Current Medications Medications Dose Ordered Sig/Mykel Route Start Time Stop Time Status Last Admin Dose Admin Acetaminophen/ Hydrocodone Bitart 1 tab Q4HP PRN PO 06/25/24 14:00 Ondansetron HCl 4 mg Q4HP PRN IV 06/25/24 14:00 Docusate Sodium 100 mg BIDPRN PRN PO 06/25/24 14:00 Acetaminophen 650 mg Q6HP PRN PO 06/25/24 14:00 Nitroglycerin 0.4 mg Q5MINP PRN SL 06/25/24 14:00 Morphine Sulfate 2 mg Q30M PRN IV 06/25/24 14:00 Apixaban 5 mg BID PO 06/25/24 22:00 06/26/24 08:51 5 MG Rifaximin 550 mg BID PO 06/25/24 22:00 06/26/24 08:51 550 MG Sodium Chloride 1 gm BID PO 06/25/24 22:00 06/26/24 08:50 1 GM Thiamine HCl 100 mg DAILY GT 06/26/24 10:00 06/26/24 08:51 100 MG Patient Own Medication 1 oz DAILY PO 06/26/24 10:00 Ascorbic Acid 500 mg DAILY PO 06/26/24 10:00 06/26/24 08:50 500 MG Spironolactone 25 mg DAILY PO 06/26/24 10:00 06/26/24 08:51 25 MG Ceftriaxone Sodium 50 ml @ 100 mls/hr DAILY@09 IV 06/25/24 16:51 06/26/24 08:50 100 MLS/HR Lactulose 15 ml BID PO 06/26/24 12:00 06/26/24 12:34 15 ML Furosemide 20 mg DAILY PO 06/27/24 10:00 Examination Physical examination: General Appearance: Alert, Oriented X3, Cooperative, No acute distress HEENT: Atraumatic, PERRLA, EOMI, Mucous membrane moist/pink Respiratory: Clear to auscultation, Normal air movement Cardiovascular: Regular rate, Normal S1, Normal S2, No murmurs, no chest wall tenderness Abdominal: Abdomen is mildly distended, Normal bowel sounds, Soft, No tenderness. Extremities: Pedal edema+, No clubbing, No cyanosis, No edema, Normal pulses, No tenderness/swelling Skin: No rashes, No breakdown, No significant lesion Neuro: Normal gait, Normal speech, Strength at 5/5 X4 ext, Normal tone, Sensation intact, Cranial nerves 3-12 NL, Reflexes 2+ Psych/Mental Status: Mental status NL, Mood NL laboratory and microbiology Laboratory Tests 06/26/24 05:46 Test 06/26/24 05:46 Range/Units Serum Glucose 116 H 74-106 mg/dL Microbiology Date/Time Source Procedure Growth Status 06/25/24 12:00 Ascities Fluid Gram Stain - Final Resulted 06/25/24 12:00 Ascities Fluid Body Fluid Culture - Preliminary Resulted 06/25/24 11:50 Blood Blood Culture - Preliminary NO GROWTH AFTER 24 HOURS OF INCUBATION. Resulted Labs and/or images reviewed: Labs reviewed by me, Image(s) reviewed by me Problem List/Assessment/Plan Problem List/Assessment/Plan Assessment and plan: # possible SBP in the context of large ascites secondary to decompensated alcoholic liver cirrhosis # Sepsis likely due to above # Status post recurrent paracentesis # Hyperbilirubinemia with transaminitis # Hypervolumic hyponatremia # Hyperammonemia # Hypoalbumoinemia secondary to cirrhosis # Macrocytosis likely due to alcoholism # Acute on chronic macrocytic anemia likely due dilutional - Maddrey;s discriminant function for alcoholic hepatitis 12.2 and MELD score 25 - S/P paracentesis and 9 L removed - IV ceftriaxone 1 g daily - Lactulose 15 mL b.i.d. - continue rifaximin 550 mg p.o. b.i.d. - continue Lasix 20 mg po and spironolactone 25 mg daily # MARIZA likely due to hepatorenal syndrome - IV albumin once - Monitor BMP # PUD prophylaxis - Protonix 40 mg p.o. daily # DVT prophylaxis - Lovenox 40 mg sc daily Goal of care discussed with the patient for more than 20 minutes full code Plan discussed with Dr. Muller Plan discussed with: Patient, Other My Orders My Orders Orders - STELLA HEATON Procedure Category Date Status Time Comprehensive LAB 06/26/24 In Process Hepatitis Panel 09:33 Lactulose Oral PHA 06/26/24 In Process 12:00 Furosemide Tablet PHA 06/27/24 In Process (Lasix Tablet) 10:00 Albumin 25% (Albutein) PHA 06/26/24 Logged 12:15 Date of Service: Jun 26, 2024 Billing Provider: KARLA MARY MD Common Visit Codes: [id number] INP/OBS CARE(HIGH) STELLA HEATON RESIDENT Jun 26, 2024 12:43 KARLA MARY MD Jun 29, 2024 22:26
[2024-06-26 13:49] LABS: Hepatitis A Total Antibody Positive (Negative); Hepatitis B Surface Antibody Negative (Negative); Hepatitis B Surface Antigen Negative (Negative); Hepatitis C Antibody Negative (Negative)
[2024-06-27] VITALS (8 sets, daily range): BP systolic 93–121; BP diastolic 55–71; PULSE 59–112; RESP 16–18; TEMP 98–98.2; O2SAT 92–99
[2024-06-27 06:27] LABS: Basophils # (auto) 0.1 10 ^3/uL (0-0.2); Basophils % (auto) 0.9 % (0.0-2.0); Eosinophils # (auto) 0.5 10 ^3/uL (0-0.8); Eosinophils % (auto) 3.8 % (0.0-7.0); Hematocrit 28.4 % (41.0-53.0); Hemoglobin 9.7 g/dL (13.5-17.5); Lymphocytes # (auto) 1.5 10 ^3/uL (0.4-5.4); Mean Corpuscular Hemoglobin 33.8 pg (28.0-32.0); Mean Corpuscular Volume 99.4 fL (80.0-100.0); Monocytes # (auto) 1.7 10 ^3/uL (0-1.3); Monocytes % (auto) 12.3 % (0.0-12.0); Neutrophils # (auto) 9.9 10 ^3/uL (1.6-8.6); Nucleated Red Blood Cells % 0.1 %; Platelet Count (auto) 196 10^3/uL (140-450); Red Blood Cells 2.86 10^6/uL (4.5-5.90); Red Cell Distribution Width 14.4 % (11.8-14.3); White Blood Cell 13.8 10^3/uL (4.4-10.8)
[2024-06-27 06:32] LABS: Chloride 99 mmol/L (98-107); Potassium 3.9 mmol/L (3.5-5.1)
[2024-06-27 06:33] LABS: Anion Gap 8 (5-15); Calcium 8.2 mg/dL (8.7-10.4); Carbon Dioxide 20 mmol/L (20-31); Sodium 127 mmol/L (136-145)
[2024-06-27 06:38] LABS: BUN/Creatinine Ratio 23.5 (10.0-20.0); Glucose 105 mg/dL (74-106)
[2024-06-27 06:40] LABS: Blood Urea Nitrogen 24 mg/dL (9-23)
[2024-06-27] MEDS: FUROSEMIDE 20 MG TAB PO SCH (12:19)
[2024-06-27] MEDS: VANCOMYCIN 750mg/150ml 150 ML IV SCH (14:46)
--- NOTE | 2024-06-27 18:04 | DVHPN2 ---
Subjective 54-year-old male with a known history of alcoholic liver cirrhosis, recurrent ascites currently status post paracentesis 9 L was removed. Patient abdominal ascites came back, repeat IR consult is pending Changes from previous H/P or p: Changes (Recurrent ascites) Eyes: No Pain, No Vision change, No Conjunctivae inflammation, No Eyelid inflammation, No Other, No Redness ENT: No Ear pain, No Ear discharge, No Nose pain, No Nose discharge, No Nose congestion, No Mouth pain, No Mouth swelling, No Throat pain, No Throat swelling, No Other Cardiovascular: No Chest Pain, No Palpitations, No Orthopnea, No Paroxysmal Noc. Dyspnea, No Edema, No Lt Headedness, No Other Respiratory: No Cough, No Dry; Shortness of breath, SOB with excertion; No Wheezing, No Hemoptysis, No Pleuritic Pain, No Sputum, No Other Gastrointestinal: No Nausea, No Vomiting; Abdominal Pain; No Diarrhea, No Constipation, No Melena, No Hematochezia, No Other Genitourinary: No Dysuria, No Frequency, No Incontinence, No Hematuria, No Retention, No Other Musculoskeletal: No other, No neck pain, No shoulder pain, No arm pain, No back pain, No hand pain, No leg pain, No foot pain Skin: No Rash, No Lesions, No Jaundice, No Bruising, No Other Objective Vitals Vital Signs Date Time Temp Pulse Resp B/P (MAP) Pulse Ox O2 Delivery O2 Flow Rate FiO2 06/27/24 17:05 98.0 102 17 93/71 (78) 92 98.0 06/27/24 08:10 Room Air* 0 21 Intake/Output Intake and Output 06/27/24 07:00 Intake Total 870 ml Balance 870 ml Intake Oral 870 ml # Voids 8 # Bowel Movements 4 Exam HEENT pupils are reactive Neck is supple CV is S1-S2 regular rate and rhythm Respiratory diminished breath sounds bases GI positive bowel sounds positive menstrual ascites Extremity 1+ 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 Medications Current Medications Medications Dose Ordered Sig/Mykel Route Start Time Stop Time Status Last Admin Dose Admin Acetaminophen/ Hydrocodone Bitart 1 tab Q4HP PRN PO 06/25/24 14:00 Ondansetron HCl 4 mg Q4HP PRN IV 06/25/24 14:00 Docusate Sodium 100 mg BIDPRN PRN PO 06/25/24 14:00 Acetaminophen 650 mg Q6HP PRN PO 06/25/24 14:00 Nitroglycerin 0.4 mg Q5MINP PRN SL 06/25/24 14:00 Morphine Sulfate 2 mg Q30M PRN IV 06/25/24 14:00 Apixaban 5 mg BID PO 06/25/24 22:00 06/27/24 12:18 5 MG Rifaximin 550 mg BID PO 06/25/24 22:00 06/27/24 12:31 550 MG Sodium Chloride 1 gm BID PO 06/25/24 22:00 06/27/24 12:16 1 GM Thiamine HCl 100 mg DAILY GT 06/26/24 10:00 06/27/24 12:16 100 MG Patient Own Medication 1 oz DAILY PO 06/26/24 10:00 Ascorbic Acid 500 mg DAILY PO 06/26/24 10:00 06/27/24 12:17 500 MG Spironolactone 25 mg DAILY PO 06/26/24 10:00 06/27/24 12:18 25 MG Ceftriaxone Sodium 50 ml @ 100 mls/hr DAILY@09 IV 06/25/24 16:51 06/27/24 12:20 100 MLS/HR Lactulose 15 ml BID PO 06/26/24 12:00 06/27/24 12:20 15 ML Furosemide 20 mg DAILY PO 06/27/24 10:00 06/27/24 12:19 20 MG Vancomycin HCl 150 ml @ 120 mls/hr Q12H IV 06/27/24 14:00 06/27/24 14:46 120 MLS/HR Laboratory Results Laboratory Tests 06/27/24 04:53 Chemistry Test 06/27/24 04:53 Calcium Level 8.2 mg/dL (8.7-10.4) L Urinalysis Test 06/25/24 13:35 Urine Color [place] (Yellow) H Urine Clarity Turbid (Clear) H Urine pH 5.5 (5.0-9.0) Urine Specific [place] 1.029 (1.001-1.035) Urine Protein 1+ (Negative) H Urine Ketones 1+ (Negative) H Urine Blood Negative /uL (Negative) Urine Nitrite Negative (Negative) Urine Bilirubin 1+ (Negative) Urine Urobilinogen 3 mg/dL (Negative) H Urine Leukocyte Esterase Negative /uL (Negative) Urine RBC 4 /hpf (0 - 3) Urine Microscopic WBC 10 /HPF (0-3) H Urine Squamous Epithelial Cells Few /hpf (<5) Urine Bacteria None seen /hpf (None Seen) Urine Hyaline Casts Few /lpf (0 - 2) Urine Mucus Few (None Seen) Urine Glucose Normal mg/dL (Normal) Microbiology Microbiology Date/Time Source Procedure Growth Status 06/25/24 13:35 Voided Urine Urine Culture - Preliminary Resulted 06/25/24 12:00 Ascities Fluid Gram Stain - Final Resulted 06/25/24 12:00 Ascities Fluid Body Fluid Culture - Preliminary Resulted 06/25/24 11:50 Blood Blood Culture - Preliminary NO GROWTH AFTER 48 HOURS OF INCUBATION. Resulted Assessment/Plan Assessment/Plan 54-year-old male with a known history of alcoholic liver cirrhosis, recurrent ascites, noncompliance initially presented to the hospital with the abdominal pain found to have 1. Decompensated liver cirrhosis 2. Massive ascites status post paracentesis 9 L was removed 3. Suspected SBP 4. Hyponatremia 5. Sepsis possibly secondary to SBP 6. Leukocytosis 7. Lactic acidosis 8. History of DVT currently on Eliquis -continue Lasix, Aldactone as tolerated, continue rifaximin,-IV antibiotics Repeat IR consultation for paracentesis Plan discussed with: Patient My Orders Orders - ALVINO BONILLA MD Procedure Category Date Status Time * Radiologist Consult CONS 06/27/24 Transmitted 17:44 *Consult CONS 06/27/24 Transmitted / 17:55 Date of Service: Jun 27, 2024 Billing Provider: ALVINO BONILLA MD Common Visit Codes: [id number] INP/OBS CARE(MOD) ALVINO BONILLA MD Jun 27, 2024 18:04
[2024-06-28 05:00] VITALS: BP 113/69; PULSE 110; RESP 18; TEMP 97.9; O2SAT 97
[2024-06-28 05:51] LABS: Basophils # (auto) 0.1 10 ^3/uL (0-0.2); Basophils % (auto) 0.7 % (0.0-2.0); Eosinophils # (auto) 0.5 10 ^3/uL (0-0.8); Eosinophils % (auto) 3.6 % (0.0-7.0); Hematocrit 29.8 % (41.0-53.0); Hemoglobin 10.2 g/dL (13.5-17.5); Lymphocytes # (auto) 1.8 10 ^3/uL (0.4-5.4); Mean Corpuscular Hemoglobin 33.9 pg (28.0-32.0); Mean Corpuscular Hgb Conc. 34.3 g/dL (32.0-36.0); Mean Corpuscular Volume 98.9 fL (80.0-100.0); Monocytes # (auto) 1.8 10 ^3/uL (0-1.3); Monocytes % (auto) 11.9 % (0.0-12.0); Neutrophils % (auto) 71.8 % (37.0-80.0); Platelet Count (auto) 222 10^3/uL (140-450); Red Blood Cells 3.01 10^6/uL (4.5-5.90); Red Cell Distribution Width 14.6 % (11.8-14.3); White Blood Cell 15.3 10^3/uL (4.4-10.8)
[2024-06-28 08:00] VITALS: PULSE 104
[2024-06-28 08:58] VITALS: BP 112/67; PULSE 101; RESP 16; TEMP 98.2; O2SAT 97
[2024-06-28 12:46] VITALS: BP 108/72; PULSE 103; RESP 18; TEMP 98; O2SAT 97
--- NOTE | 2024-06-28 14:41 | DVHPN2 ---
Subjective 54-year-old male with a known history of alcoholic liver cirrhosis, recurrent ascites currently status post paracentesis 9 L was removed. Patient abdominal ascites came back, repeat IR consult is pending Changes from previous H/P or p: No Changes Eyes: No Pain, No Vision change, No Conjunctivae inflammation, No Eyelid inflammation, No Other, No Redness ENT: No Ear pain, No Ear discharge, No Nose pain, No Nose discharge, No Nose congestion, No Mouth pain, No Mouth swelling, No Throat pain, No Throat swelling, No Other Cardiovascular: No Chest Pain, No Palpitations, No Orthopnea, No Paroxysmal Noc. Dyspnea, No Edema, No Lt Headedness, No Other Respiratory: No Cough, No Dry; Shortness of breath, SOB with excertion; No Wheezing, No Hemoptysis, No Pleuritic Pain, No Sputum, No Other Gastrointestinal: No Nausea, No Vomiting; Abdominal Pain; No Diarrhea, No Constipation, No Melena, No Hematochezia, No Other Genitourinary: No Dysuria, No Frequency, No Incontinence, No Hematuria, No Retention, No Other Musculoskeletal: No other, No neck pain, No shoulder pain, No arm pain, No back pain, No hand pain, No leg pain, No foot pain Skin: No Rash, No Lesions, No Jaundice, No Bruising, No Other Objective Vitals Vital Signs Date Time Temp Pulse Resp B/P (MAP) Pulse Ox O2 Delivery O2 Flow Rate FiO2 06/28/24 12:46 98.0 103 18 108/72 (84) 97 98.0 06/28/24 08:00 Room Air* 0 21 Intake/Output Intake and Output 06/28/24 07:00 Intake Total 1350 ml Balance 1350 ml Intake Oral 1200 ml IV Total 150 ml # Voids 10 # Bowel Movements 10 Exam HEENT pupils are reactive Neck is supple CV is S1-S2 regular rate and rhythm Respiratory diminished breath sounds bases GI positive bowel sounds positive menstrual ascites Extremity 1+ pitting edema [employer]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 motor 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 Medications Current Medications Medications Dose Ordered Sig/Mykel Route Start Time Stop Time Status Last Admin Dose Admin Acetaminophen/ Hydrocodone Bitart 1 tab Q4HP PRN PO 06/25/24 14:00 Ondansetron HCl 4 mg Q4HP PRN IV 06/25/24 14:00 Docusate Sodium 100 mg BIDPRN PRN PO 06/25/24 14:00 Acetaminophen 650 mg Q6HP PRN PO 06/25/24 14:00 Nitroglycerin 0.4 mg Q5MINP PRN SL 06/25/24 14:00 Morphine Sulfate 2 mg Q30M PRN IV 06/25/24 14:00 Apixaban 5 mg BID PO 06/25/24 22:00 06/28/24 09:14 5 MG Rifaximin 550 mg BID PO 06/25/24 22:00 06/28/24 09:14 550 MG Sodium Chloride 1 gm BID PO 06/25/24 22:00 06/28/24 09:14 1 GM Thiamine HCl 100 mg DAILY GT 06/26/24 10:00 06/28/24 09:14 100 MG Patient Own Medication 1 oz DAILY PO 06/26/24 10:00 Ascorbic Acid 500 mg DAILY PO 06/26/24 10:00 06/28/24 09:14 500 MG Spironolactone 25 mg DAILY PO 06/26/24 10:00 06/28/24 09:13 25 MG Ceftriaxone Sodium 50 ml @ 100 mls/hr DAILY@09 IV 06/25/24 16:51 06/28/24 09:15 100 MLS/HR Lactulose 15 ml BID PO 06/26/24 12:00 06/28/24 09:12 15 ML Furosemide 20 mg DAILY PO 06/27/24 10:00 06/28/24 09:13 20 MG Vancomycin HCl 150 ml @ 120 mls/hr Q12H IV 06/27/24 14:00 06/28/24 14:23 120 MLS/HR Laboratory Results Laboratory Tests 06/27/24 04:53 06/28/24 04:47 Urinalysis Test 06/25/24 13:35 Urine Color [place] (Yellow) H Urine Clarity Turbid (Clear) H Urine pH 5.5 (5.0-9.0) Urine Specific [place] 1.029 (1.001-1.035) Urine Protein 1+ (Negative) H Urine Ketones 1+ (Negative) H Urine Blood Negative /uL (Negative) Urine Nitrite Negative (Negative) Urine Bilirubin 1+ (Negative) Urine Urobilinogen 3 mg/dL (Negative) H Urine Leukocyte Esterase Negative /uL (Negative) Urine RBC 4 /hpf (0 - 3) Urine Microscopic WBC 10 /HPF (0-3) H Urine Squamous Epithelial Cells Few /hpf (<5) Urine Bacteria None seen /hpf (None Seen) Urine Hyaline Casts Few /lpf (0 - 2) Urine Mucus Few (None Seen) Urine Glucose Normal mg/dL (Normal) Microbiology Microbiology Date/Time Source Procedure Growth Status 06/25/24 13:35 Voided Urine Urine Culture - Final Complete 06/25/24 12:00 Ascities Fluid Gram Stain - Final Resulted 06/25/24 12:00 Ascities Fluid Body Fluid Culture - Preliminary Resulted 06/25/24 11:50 Blood Blood Culture - Preliminary NO GROWTH AFTER 72 HOURS OF INCUBATION. Resulted Assessment/Plan Assessment/Plan 54-year-old male with a known history of alcoholic liver cirrhosis, recurrent ascites, noncompliance initially presented to the hospital with the abdominal pain found to have 1. Decompensated liver cirrhosis 2. Massive ascites status post paracentesis 9 L was removed 3. Suspected SBP 4. Hyponatremia 5. Sepsis possibly secondary to SBP 6. Leukocytosis 7. Lactic acidosis 8. History of DVT currently on Eliquis -continue Lasix, Aldactone as tolerated, continue rifaximin,-IV antibiotics Repeat IR consultation for paracentesis Plan discussed with: Other My Orders Orders - ALVINO BONILLA MD Procedure Category Date Status Time * Radiologist Consult CONS 06/27/24 Transmitted 17:44 *Consult CONS 06/27/24 Transmitted / 17:55 Date of Service: Jun 28, 2024 Billing Provider: ALVINO BONILLA MD Common Visit Codes: [id number] INP/OBS CARE(MOD), NOT BILLABLE ALVINO BONILLA MD Jun 28, 2024 14:41
--- NOTE | 2024-06-29 16:33 | DVHDS2 ---
Discharge Summary Date of Admission Jun 25, 2024 at 14:00 Date of Discharge: Jun 28, 2024 Labs/Diagnostic Data: Laboratory Results Test 06/28/24 04:47 06/27/24 04:53 06/26/24 05:46 06/25/24 13:35 White Blood Count 15.3 10^3/uL (4.4-10.8) Red Blood Count 3.01 10^6/uL (4.5-5.90) Hemoglobin 10.2 g/dL (13.5-17.5) Hematocrit 29.8 % (41.0-53.0) Mean Corpuscular Volume 98.9 fL (80.0-100.0) Mean Corpuscular Hemoglobin 33.9 pg (28.0-32.0) Mean Corpuscular Hemoglobin Concent 34.3 g/dL (32.0-36.0) Red Cell Distribution Width 14.6 % (11.8-14.3) Platelet Count 222 10^3/uL (140-450) Mean Platelet Volume 7.4 fL (6.9-10.8) Neutrophils (%) (Auto) 71.8 % (37.0-80.0) Lymphocytes (%) (Auto) 12.0 % (10.0-50.0) Monocytes (%) (Auto) 11.9 % (0.0-12.0) Eosinophils (%) (Auto) 3.6 % (0.0-7.0) Basophils (%) (Auto) 0.7 % (0.0-2.0) Neutrophils # (Auto) 11.0 10 ^3/uL (1.6-8.6) Lymphocytes # (Auto) 1.8 10 ^3/uL (0.4-5.4) Monocytes # (Auto) 1.8 10 ^3/uL (0-1.3) Eosinophils # (Auto) 0.5 10 ^3/uL (0-0.8) Basophils # (Auto) 0.1 10 ^3/uL (0-0.2) Nucleated Red Blood Cells 0.0 % Creatinine 1.02 mg/dL (0.700-1.30) Glomerular Filtration Rate Calc 87 mL/min (>90) Sodium Level 127 mmol/L (136-145) Potassium Level 3.9 mmol/L (3.5-5.1) Chloride Level 99 mmol/L (98-107) Carbon Dioxide Level 20 mmol/L (20-31) Anion Gap 8 (5-15) Blood Urea Nitrogen 24 mg/dL (9-23) BUN/Creatinine Ratio 23.5 (10.0-20.0) Serum Glucose 105 mg/dL (74-106) Lactic Acid Level 1.4 mmol/L (0.4-2.0) Calcium Level 8.2 mg/dL (8.7-10.4) Random Vancomycin Level 11.6 ug/mL (5-10) Total Bilirubin 3.0 mg/dL (0.2-1.0) Aspartate Amino Transferase (AST) 56 U/L (13-40) Alanine Aminotransferase (ALT) 26 U/L (7-40) Alkaline Phosphatase 183 U/L (46-116) Ammonia 41 umol/L (11-32) Total Protein 6.0 g/dL (5.7-8.2) Albumin 2.0 g/dL (3.2-4.8) Hepatitis A Antibody Total Positive (Negative) Hepatitis B Surface Antigen Negative (Negative) Hepatitis B Surface Antibody Negative (Negative) Hepatitis B Core Total Antibody Negative (Negative) Hepatitis C Antibody Negative (Negative) Urine Color [place] (Yellow) Urine Clarity Turbid (Clear) Urine pH 5.5 (5.0-9.0) Urine Specific [place] 1.029 (1.001-1.035) Urine Protein 1+ (Negative) Urine Ketones 1+ (Negative) Urine Blood Negative /uL (Negative) Urine Nitrite Negative (Negative) Urine Bilirubin 1+ (Negative) Urine Urobilinogen 3 mg/dL (Negative) Urine Leukocyte Esterase Negative /uL (Negative) Urine RBC 4 /hpf (0 - 3) Urine Microscopic WBC 10 /HPF (0-3) Urine Squamous Epithelial Cells Few /hpf (<5) Urine Bacteria None seen /hpf (None Seen) Urine Hyaline Casts Few /lpf (0 - 2) Urine Mucus Few (None Seen) Urine Glucose Normal mg/dL (Normal) Test 06/25/24 12:00 06/25/24 08:30 Body Fluid Source Peritoneal fluid Body Fluid pH 8.0 Body Fluid WBC (Manual) 114 CUMM (0-200) Body Fluid RBC (Manual) 0 CUMM (0-2000) Body Fluid Mononuclear Cells 60 % Body Fluid Polymorphonuclear Cells 40 % (0-25) Body Fluid Glucose 119 mg/dL (.) Body Fluid Total Protein 1.0 g/dL (.) Body Fluid Lactate Dehydrogenase 53 IU/L (.) Prothrombin Time 13.8 sec (9.3-11.8) Prothrombin Time INR 1.34 (0.9-1.15) Activated Partial Thromboplast Time 33.3 SEC (24.5-34.5) Other Laboratory Tests 06/28/24 04:47 06/27/24 04:53 Brief Hx & Hospital Course: 54-year-old male with a known history of alcoholic liver cirrhosis, recurrent ascites, noncompliance initially presented to the hospital with the abdominal pain found to have decompensated liver cirrhosis. Patient's has a massive ascites status post paracentesis in which 9 L was removed. Patient also had a suspected respiratory be with a underlying sepsis treated with the IV antibiotics. Patient left against medical advice before completion of workup and treatment. Condition at Discharge: Undetermined Final Diagnosis/Problems List 54-year-old male with a known history of alcoholic liver cirrhosis, recurrent ascites, noncompliance initially presented to the hospital with the abdominal pain found to have 1. Decompensated liver cirrhosis 2. Massive ascites status post paracentesis 9 L was removed 3. Suspected SBP 4. Hyponatremia 5. Sepsis possibly secondary to SBP 6. Leukocytosis 7. Lactic acidosis 8. History of DVT currently on Eliquis Discharge Disposition: A SNF Discharge Will this Physician continue t: No Discharge Statement: "Patient was advised to return to the ER or call 911 if any headaches, dizziness, shortness of breath, chest pain, abdominal pain, bleeding, fevers, or worsening of medical condition. Patient was counseled about treatment plan, medications, possible side effects, patientverbalized understanding. All questions were answered to the best of my ability. This discharge took greater then 30 minutes in planning, reviewing documentation, counseling the patient, and discussing with other team members." ASSESSMENT ASSESSMENT Assessment Date of Service: Jun 28, 2024 Billing Provider: ALVINO BONILLA MD Common Visit Codes: [id number] DISCH DAY >30min ALVINO BONILLA MD Jun 29, 2024 16:33
== END 2024-06-28 15:30 | disposition left against medical advice (07) | DRG 720 ==
LOC: ER 07:41 → OVERFLOW 14:00 → TELE-WESTW 17:14
PROVIDERS: ADMIT Internal Medicine; ATTEND Internal Medicine
PROC: 0W9G3ZZ Drainage of Peritoneal Cavity, Percutaneous Approach (ICD-10-PCS; principal; 2024-06-25)
DX: A41.9 Sepsis, unspecified organism (principal); K76.7 Hepatorenal syndrome; E43 Unspecified severe protein-calorie malnutrition; K65.2 Spontaneous bacterial peritonitis; E87.20 Acidosis, unspecified; N17.9 Acute kidney failure, unspecified; R18.8 Other ascites; E87.1 Hypo-osmolality and hyponatremia; I95.9 Hypotension, unspecified; K74.60 Unspecified cirrhosis of liver; E80.6 Other disorders of bilirubin metabolism; Z79.01 Long term (current) use of anticoagulants; Z86.718 Personal history of other venous thrombosis and embolism; Z91.199 Patient's noncompliance with other medical treatment and regimen due to unspecified reason; Z68.26 Body mass index [BMI] 26.0-26.9, adult
CPT/HCPCS: 36415; 49083; 76942; 80048; 80053; 80202; 81001; 82140; 82565; 83605; 83986; 85025; 85610; 85730; 86704; 86706; 86708; 86803; 87040; 87086; 87205; 87340; 89051; G0378; J0692; P9047

== ENCOUNTER 2024-06-30 07:45 | Emergency (ER) | payer MEDICAID ==
[~2024-06-30] VITALS: Ht 170.2 cm; Wt 97.8 kg
[~2024-06-30 07:45] MED LIST: APIX5TAB PO; ASCO500C49 PO; FURO20TA4 GT; LACT10SO3 PO; RIFA550T PO; SODC1T PO; SPIR50TA5 PO; THIA100T10 GT; [UNRECOGNIZED DRUG - CODE] OR
[2024-06-30 08:08] VITALS: PULSE 100; RESP 18; TEMP 97.8; O2SAT 94
--- NOTE | 2024-06-30 09:25 | ED.PDOC ---
History of Present Illness HPI Comments 54 y/o M, with a history of alcoholic liver cirrhosis, recurrent ascites, noncompliance, sepsis, and DVT on Eliquis, presents with c/o diffused abdominal pain and distension, today. Patient is a poor historian and endorses on returning to ED following recent [facility] admission discharge, yesterday, under advice of discharge provider for paracentesis prior to relocating. Patient reports last paracentesis being performed during his aforementioned admission on 06/25/24 and having 9 liters removed then. He denies any nausea, vomiting, shortness of breath, fever, chills, or other associated symptoms at this time. Chief Complaint: Abdominal Pain Time Seen by MD: 08:45 Primary Care Provider: none Reviewed Notes: Nurses Notes, Medications, Allergies Allergies: Coded Allergies: NO KNOWN ALLERGIES (Unverified , 06/23/24) Home Meds Reported Medications Furosemide (Furosemide) 20 Mg Tab, 20 MG GT DAILY, TAB 06/25/24 Apixaban Base (ELIQUIS) 5 Mg Tab, 5 MG PO BID, TAB 06/25/24 Rifaximin (Xifaxan) 550 Mg Tab, 1 TAB PO BID, #28 TAB 06/25/24 Ascorbic Acid (VITAMIN C) 500 Mg Cap, 500 MG PO DAILY, CAP 06/25/24 Thiamine Hcl (VITAMIN B-1) 100 Mg Tb, 100 MG GT DAILY, TAB 06/25/24 Spironolactone (Spironolactone) 50 Mg Tab, 1 TAB PO DAILY, #30 TAB 5 Refills 06/25/24 Sodium Chloride (Sodium Chloride) 1 Gm Tab, 1 GM PO BID, TAB 06/25/24 Amino Acids (Liquacel) Grape Liq, 1 OZ OR DAILY, LIQ 06/25/24 Lactulose (Lactulose) 10 Gm/15 Ml Kira, 10 GM PO BID, ML 06/25/24 Information Source: Patient Mode of Arrival: Ambulatory Severity: Moderate Timing: Hours Duration: Since onset Prehospital treatment: None Past Medical History PAST MEDICAL HISTORY: Liver (alcoholic liver cirrhosis) Past Medical History (Other): sepsis DVT on Eliquis Surgical History (Other): multiple paracentesis Family History Family History: Reviewed,noncontributory to illness Social History Smoker: Non-Smoker Alcohol: Denies ETOH Use Drugs: Denies Drug Use Lives In: Home All Other Systems: Reviewed and Negative (Comprehensive systems review obtained and negative except for what is stated in the HPI.) Physical Exam General Appearance: No Apparent Distress, Normal HEENT: Normal ENT Inspection, Pharynx Normal, TMs Normal Neck: Full Range of Motion, Non-Tender, Normal, Normal Inspection Respiratory: Chest Non-Tender, Lungs Clear, No Accessory Muscle Use, No Respiratory Distress, Normal Breath Sounds Cardiovascular: No Edema, No JVD, No Murmur, No Gallop, Normal Peripheral Pulses, Regular Rate/Rhythm Breast Exam: Deferred Gastrointestinal: Diffuse (tenderness), Distended, No Organomegaly, No Pulsatile Mass, Normal Bowel Sounds, Soft, Tenderness (diffuse ) Genitalia: Deferred Pelvic: Deferred Rectal: Deferred Extremities: No calf tenderness, Normal capillary refill, Normal inspection, Normal range of motion, Non-tender, No pedal edema Musculoskeletal : Apperance: Normal 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 Was a procedure done?: Yes Sedation Sedation?: No Other Procedure Procedure paracentesis Indication ascites Anesthetic Lidocaine Prep Chlorhexidine Success Yes Informed consent obtained: Yes Risks, benefits, and alternati: Yes Differential Dx Considerations may include: recurrent ascites s/p alcoholic liver cirrhosis X-Ray, Labs, Meds, VS Vital Signs Date Time Temp Pulse Resp B/P (MAP) Pulse Ox O2 Delivery O2 Flow Rate FiO2 06/30/24 09:03 107 06/30/24 08:08 100 18 94 Room Air* 0 21 06/30/24 08:08 97.8 100 18 127/76 (93) 94 97.8 06/30/24 07:53 98.0 117 16 114/78 (90) 98 98.0 Time of 1ST Reevaluation: 09:15 Reevaluation 1ST: Unchanged Patient Education/Counseling: Diagnosis, Treatment Family Education/Counseling: No Family Present Additional Information Previous medical encounters reviewed: June 25, 2024 for sepsis The following tests were ordered, and results were reviewed by me: n/a Additional Information was gathered from interviewing the following independent historians: n/a I reviewed and agreed with the following test results read by other providers: n/a I discussed treatment and results with medical personnel and: Patient Departure 1 Departure Time of Disposition: 11:20 (Patient with worsening abdominal pain and ascites. We will treat outpatient with the patient's ascites and admit patient for further workup and expert consultation) Impression: Primary Impression: Abdominal pain Qualified Codes: R10.84 - Generalized abdominal pain Additional Impressions: Shortness of breath Liver cirrhosis Qualified Codes: K74.60 - Unspecified cirrhosis of liver; R18.8 - Other ascites Ascites Qualified Codes: R18.8 - Other ascites Disposition: ADMITTED INPATIENT Admit to: Med Surg Condition: Serious Critical Care Note Critical Care Time?: Yes Critical care comment: Acute shortness of breath Authorized and Performed by: Fredo Groves MD Total critical care time: Approximately 39 minutes Due to a high probability of clinically significant, life threatening deterioration, the patient required my highest level of preparedness to intervene emergently and I personally spent this critical care time directly and personally managing the patient. This critical care time included obtaining a history; examining the patient; pulse oximetry; ordering and review of studies; arranging urgent treatment with development of a management plan; evaluation of patient's response to treatment; frequent reassessment; and, discussions with other providers. This critical care time was performed to assess and manage the high probability of imminent, life-threatening deterioration that could result in multi-organ failure. It was exclusive of separately billable procedures and treating other patients and teaching time. Please see my other sections and the rest of the note for further information on patient assessment and treatment. Stability Stability form required: No Heart Score Heart Score: Heart Score Response (Comments) Value History N/A 0 EKG N/A 0 Age N/A 0 Risk Factors N/A 0 Troponin N/A 0 Total 0 I personally scribed for FREDO GROVES MD ([email or web address]) on 06/30/24 at 09:24. Electronically submitted by Eyad Cantrell ([email or web address]). I personally scribed for FREDO GROVES MD ([email or web address]) on 06/30/24 at 10:53. Electronically submitted by Eyad Cantrell ([email or web address]). FREDO GROVES MD Jun 30, 2024 09:24
--- NOTE | 2024-06-30 10:52 | DVH ---
ULTRASOUND ABDOMEN limited, 4 QUADRANTS INDICATION: FLUID CHECK FOR POSSIBLE PARACENTESIS Evaluate for ascites. TECHNIQUE: The four quadrants of the abdomen were scanned in green-scale to assess for the presence of ascites. N o solid organ assessment was performed. FINDINGS/IMPRESSIONS: Small to moderate volume ascites.
--- NOTE | 2024-06-30 11:55 | DVH ---
PROCEDURE: ULTRASOUND GUIDED PARACENTESIS HISTORY: 54 Male requiring paracentesis. TECHNIQUE: The risks and benefits of the procedure including but not limited to bleeding, infection and injury t o abdominal organs were explained to the patient and written informed consent was obtained. Optimal site for puncture was determined using ultrasound and the area sterilized and draped. Using a 5 Lao Yueh catheter, paracentesis was performed in the right lower quadrant abdomen. Approximate ly 9.4 liters of serous fluid was removed. The patient tolerated the procedure well. There were no immediate complications. IMPRESSION: Ultrasound-guided paracentesis with no immediate complications. Procedure performed by ED physician Dr. Groves.
[2024-06-30 12:00] VITALS: BP 95/52; RESP 14; O2SAT 100
[2024-06-30 12:16] VITALS: PULSE 101
[2024-06-30 12:35] LABS: Alanine Aminotransferase 31 U/L (7-40); Anion Gap 8 (5-15); BUN/Creatinine Ratio 17.8 (10.0-20.0); Chloride 99 mmol/L (98-107); Glucose 104 mg/dL (74-106); Potassium 4.3 mmol/L (3.5-5.1)
[2024-06-30 12:36] LABS: Albumin 2.4 g/dL (3.2-4.8); Alkaline Phosphatase 229 U/L (46-116); Aspartate Aminotransferase 62 U/L (13-40); Bilirubin, Total 2.9 mg/dL (0.2-1.0); Blood Urea Nitrogen 24 mg/dL (9-23); Calcium 8.7 mg/dL (8.7-10.4); Carbon Dioxide 18 mmol/L (20-31); Sodium 125 mmol/L (136-145)
[2024-06-30 12:40] LABS: INR 1.32 (0.9-1.15); Partial Thromboplastin Time 32.2 SEC (24.5-34.5); Prothrombin Time 13.6 sec (9.3-11.8)
== END 2024-06-30 12:23 | disposition left against medical advice (07) ==
LOC: ER 07:45
DX: K74.60 Unspecified cirrhosis of liver (principal); R18.8 Other ascites; R06.02 Shortness of breath; Z86.718 Personal history of other venous thrombosis and embolism; Z79.899 Other long term (current) drug therapy; Z79.01 Long term (current) use of anticoagulants
CPT/HCPCS: 36415; 49083; 76705; 76942; 80053; 85610; 85730; 99285; C1729; J2003